=== PATIENT | female | born 1990 | race Two or more races ===

== ENCOUNTER 2019-11-03 18:19 | Inpatient (IN) | payer OTHER ==
[~2019-11-03] VITALS: Ht 167.6 cm; Wt 75.0 kg
[2019-11-03 20:40] LABS: Urine Bacteria NONE SEEN /hpf (None Seen); Urine Blood TRACE /uL (Negative); Urine Specific Gravity 1.038 (1.001-1.035); Urine WBC 1 /hpf (0 - 5)
[2019-11-03] MEDS ORDERED: SODIUM CHLORIDE 0.9% 2,000 ML IV ONE (22:00)
[2019-11-03] MEDS ORDERED: KETOROLAC TROMETH 30 MG/ML 1ML VIAL IV ONE (22:15)
[2019-11-03 23:34] LABS: Basophils # (auto) 0.1 10 ^3/uL (0-0.2); Basophils % (auto) 0.5 % (0.0-2.0); Eosinophils # (auto) 0 10 ^3/uL (0-0.8); Eosinophils % (auto) 0.1 % (0.0-7.0); Lymphocytes % (auto) 5.5 % (10.0-50.0); Monocytes % (auto) 5.5 % (0.0-12.0); Neutrophils # (auto) 15.6 10 ^3/uL (1.6-8.6); Neutrophils % (auto) 88.4 % (37.0-80.0); Nucleated Red Blood Cells % 0.1 %; Platelet Count (auto) 299 10^3/uL (140-450); Red Cell Distribution Width 12.9 % (11.8-14.3)
[2019-11-03 23:50] LABS: Magnesium 3.4 mg/dL (1.6-2.6); Potassium 4.8 mmol/L (3.5-5.1)
[2019-11-04 00:13] LABS: White Blood Cell 17.7 10^3/uL (4.4-10.8)
[2019-11-04 00:14] LABS: Hematocrit 39.4 % (36.0-46.0); Hemoglobin 12.8 g/dL (12.2-16.2); Mean Corpuscular Hemoglobin 29.5 pg (28.0-32.0); Mean Corpuscular Hgb Conc. 32.6 g/dL (32.0-36.0); Mean Corpuscular Volume 90.3 fL (80.0-100.0); Red Blood Cells 4.36 10^6/uL (4.0-5.20)
[2019-11-04 01:25] LABS: BUN/Creatinine Ratio 12.2; Calcium 7.6 mg/dL (8.5-10.1)
[2019-11-04 01:30] LABS: Total Protein 6.4 g/dL (6.4-8.2)
[2019-11-04 01:48] LABS: Albumin 3.6 g/dL (3.4-5.0)
[2019-11-04 01:51] LABS: Bilirubin, Total 0.8 mg/dL (0.2-1.0)
[2019-11-04] MEDS ORDERED: MORPHINE SULFATE 4 MG/ML SYR/VIAL IV PRN (03:00)
[2019-11-04] MEDS ORDERED: TEMAZEPAM 15 MG CAP PO PRN (03:00)
[2019-11-04] MEDS ORDERED: ACETAMINOPHEN 325 MG TAB PO PRN (03:00)
[2019-11-04] MEDS ORDERED: MORPHINE SULF INJ 2 MG/ML SYRINGE 1ML IV PRN ×2 (03:00→16:45)
[2019-11-04] MEDS ORDERED: ONDANSETRON HCL 4 MG/2 ML VIAL IV PRN (03:00)
[2019-11-04] MEDS ORDERED: DEXTROSE (50%) 50ML SYRG IV PRN (03:00)
[2019-11-04] MEDS ORDERED: cefTRIAXone 1GM/50ML D5W 50 ML IV ONE (03:00)
[2019-11-04] MEDS ORDERED: HYDROcodone-ACET 5/325MG TAB PO PRN (03:00)
[2019-11-04] MEDS ORDERED: NITROGLYCERIN 0.4 MG SL TAB SL PRN (03:00)
[2019-11-04] MEDS: SODIUM CHLORIDE 0.9% 1,000 ML IV SCH ×2 (03:27→14:20)
--- NOTE | 2019-11-04 03:40 | NUR ---
arrival note pt arrived to [address] via wheelchair. pt transferred self to hospital bed. pt is A&O4. respirations even and nonlabored on room air. POC discussed with patient. 18g at left AC.
[2019-11-04] MEDS ORDERED: ATOR20TA PO (04:45)
[2019-11-04] MEDS ORDERED: INSLANTI SC (04:45)
[2019-11-04] MEDS ORDERED: METF-370 PO (04:45)
[2019-11-04] MEDS ORDERED: LISI-275 PO (04:45)
[2019-11-04 04:46] VITALS: BP 126/81
[2019-11-04 05:00] VITALS: BP 126/81
[2019-11-04] MEDS: ACCU-CHEK COMFORT CURVE STRIP VI SCH ×3 (05:14→18:22)
[2019-11-04] MEDS: InsuLIN REG 1unit/0.01ml Soln (100units/ml) SC SCH ×3 (05:17→18:42)
[2019-11-04 06:03] LABS: Potassium 5.4 mmol/L (3.5-5.1)
[2019-11-04 06:10] LABS: Calcium 7.1 mg/dL (8.5-10.1)
--- NOTE | 2019-11-04 07:08 | NUR ---
closing note pt resting comfortably in semi fowlers position with eyes closed. no s/s of pain or discomfort at this time. respirations even and nonlabored on room air. bed in low locked position, call light within reach.
--- NOTE | 2019-11-04 07:45 | NUR ---
Morning note Patient resting in bed with even and unlabored respirations, no distress noted. Instructed patient on POC, fall precautions and to call for assistance as needed. Patient verbalized understanding. Fall precautions in place with call light within reach.
[2019-11-04 09:00] VITALS: BP 122/70
[2019-11-04] MEDS ORDERED: FAMOTIDINE 20 MG TAB PO SCH (10:00)
[2019-11-04] MEDS ORDERED: SODIUM CHLORIDE 0.9% 1,000 ML IV ONE (12:00)
[2019-11-04 13:00] VITALS: BP 111/68
[2019-11-04 13:54] LABS: Cholesterol 289 mg/dL (< 200); Triglycerides > 1000 mg/dL (< 150)
[2019-11-04 13:55] LABS: HDL Cholesterol 27 mg/dL (40-59)
--- NOTE | 2019-11-04 14:21 | NUR ---
POC discussed with Dr. Patria Moreno. Patient okay for discharge after dinner if soft diet is tolerated per MD.
[2019-11-04] MEDS ORDERED: INSREG3 SC (16:35)
[2019-11-04 17:00] VITALS: BP 109/67
--- NOTE | 2019-11-04 17:47 | NUR ---
Patient's sister, Suze, called for an update Password obtained. Update provided.
[2019-11-04 17:53] LABS: Anion Gap 14.8 (5-15); Blood Urea Nitrogen 4 mg/dL (7-18); Carbon Dioxide 13.2 mmol/L (21-32); Chloride 111 mmol/L (98-107); Glucose 209 mg/dL (74-106); Sodium 139 mmol/L (136-145)
[2019-11-04 17:54] LABS: Alanine Aminotransferase 110 U/L (13-56); Alkaline Phosphatase 83 U/L (45-117); BUN/Creatinine Ratio 12.5; Bilirubin, Total 0.7 mg/dL (0.2-1.0); Calcium 7.1 mg/dL (8.5-10.1); GFR African American 310 mL/min; GFR Non-African American 256 mL/min
[2019-11-04 17:55] LABS: Albumin 3.1 g/dL (3.4-5.0); Lipase 654 U/L (73-393); Total Protein 6.2 g/dL (6.4-8.2)
[2019-11-04 18:05] LABS: Potassium 4.8 mmol/L (3.5-5.1)
[2019-11-04 18:06] LABS: Aspartate Aminotransferase 89 U/L (15-37); Bilirubin, Direct < 0.1 mg/dL (0-0.2)
[2019-11-04] MEDS ORDERED: GEMF600T7 PO (18:26)
--- NOTE | 2019-11-04 18:30 | NUR ---
Spoke with Dr. Patria Moreno Patient laxmi for discharge. Addendum: 11/04/19 at 1830 by Kasey Powell RN MD aware of recent lab values.
--- NOTE | 2019-11-04 18:31 | NUR ---
RE: Home health/discharge Patient to be discharged. Home health to be arranged with [facility].
--- NOTE | 2019-11-04 19:15 | NUR ---
Opening Shift Note Assumed care of patient, awake and alert. No S/S of distress/SOB or pain. Instructed on POC and to call for assist PRN, will continue to monitor for changes Q1hr and PRN.
--- NOTE | 2019-11-04 19:17 | NUR ---
Closing note/care endorsed Patient resting in bed with even and unlabored respirations, no distress noted. Fall precautions in place with call light within reach.
--- NOTE | 2019-11-04 19:40 | NUR ---
DISCHARGE Discharge instructions provided. All questions answered. IV d/c'd, Tele box removed and patient ID band removed. Patient contacted sister via phone for ride home.
--- NOTE | 2019-11-04 19:55 | NUR ---
TELE BOX Tele box #[id number] returned to monitor techs via bullet system.
--- NOTE | 2019-11-04 19:58 | NUR ---
DISCHARGE Patient's sister arrived to transport home. Patient ambulated off unit independently. All personal items taken with patient. No distress noted.
[2019-11-05] MEDS ORDERED: cefTRIAXone 1GM/50ML D5W 50 ML IV SCH (09:00)
--- NOTE | 2019-11-05 10:30 | NUR ---
SS consult for HH evaluation. Contacted Vinnie Barroso case operator, regarding home health order and was advised to send referral to contracted vendor, [facility]. Contacted [facility] and faxed clinical information. Received confirmation and pt accepted onto service. No other social service needs or concerns.
== END 2019-11-04 19:58 | disposition home health service (06) | DRG 440 ==
LOC: ER 18:21 → TELE-WESTW 18:22
PROVIDERS: ADMIT Nurse Practitioner; ATTEND Internal Medicine
DX: K85.90 Acute pancreatitis without necrosis or infection, unspecified (principal); D72.829 Elevated white blood cell count, unspecified; E78.5 Hyperlipidemia, unspecified; R81 Glycosuria; E11.9 Type 2 diabetes mellitus without complications; I10 Essential (primary) hypertension; Z90.49 Acquired absence of other specified parts of digestive tract; Z87.442 Personal history of urinary calculi
CPT/HCPCS: 36415; 72100; 74176; 80048; 80053; 80061; 80076; 81001; 81025; 82150; 82962; 83036; 83605; 83690; 83735; 85025; 87040; 96361; 96374; 96375; G0378; J0696; J1815; J1885

== ENCOUNTER 2020-03-18 20:17 | Emergency (ER) | payer OTHER ==
[~2020-03-18] VITALS: Ht 162.6 cm; Wt 69.4 kg
[~2020-03-18 20:17] MED LIST: ATOR20TA PO; GEMF600T7 PO; INSLANTI SC; INSREG3 SC; LISI-275 PO; METF-370 PO
[2020-03-18 21:24] LABS: Urine Bacteria FEW /hpf (None Seen); Urine Blood TRACE /uL (Negative); Urine Specific Gravity 1.024 (1.001-1.035); Urine WBC 11 /hpf (0 - 5)
[2020-03-18 22:07] LABS: Eosinophils # (auto) 0.1 10 ^3/uL (0-0.8); Mean Corpuscular Hemoglobin 33.2 pg (28.0-32.0); Mean Corpuscular Hgb Conc. 37.8 g/dL (32.0-36.0); Monocytes # (auto) 0.8 10 ^3/uL (0-1.3)
[2020-03-18 22:09] LABS: Basophils # (auto) 0 10 ^3/uL (0-0.2); Basophils % (auto) 0.3 % (0.0-2.0); Eosinophils % (auto) 0.5 % (0.0-7.0); Hematocrit 39.7 % (36.0-46.0); Lymphocytes # (auto) 2.2 10 ^3/uL (0.4-5.4); Lymphocytes % (auto) 13.8 % (10.0-50.0); Monocytes % (auto) 5.1 % (0.0-12.0); Neutrophils # (auto) 12.9 10 ^3/uL (1.6-8.6); Neutrophils % (auto) 80.3 % (37.0-80.0); Nucleated Red Blood Cells % 0.3 %; Platelet Count (auto) 345 10^3/uL (140-450); Red Blood Cells 4.52 10^6/uL (4.0-5.20); White Blood Cell 16.1 10^3/uL (4.4-10.8)
[2020-03-18 23:22] LABS: Potassium 5.3 mmol/L (3.5-5.1)
[2020-03-18 23:24] LABS: Bilirubin, Total 0.3 mg/dL (0.2-1.0); Calcium 7.9 mg/dL (8.5-10.1); Total Protein 7.1 g/dL (6.4-8.2)
[2020-03-19 01:02] LABS: Amylase 68 U/L (25-115); Lipase 498 U/L (73-393)
[2020-03-19] MEDS ORDERED: ONDANSETRON HCL 4 MG/2 ML VIAL IV ONE (01:15)
[2020-03-19] MEDS ORDERED: MORPHINE SULFATE 4 MG/ML SYR/VIAL IV ONE (01:15)
[2020-03-19] MEDS ORDERED: D5W/SOD CHL 0.45% 1,000 ML IV ONE (01:15)
[2020-03-19] MEDS ORDERED: MORPHINE SULF INJ 2 MG/ML SYRINGE 1ML IV ONE (03:45)
[2020-03-19 04:00] VITALS: BP 105/67
== END 2020-03-19 04:45 | disposition home or self-care (01) ==
LOC: ER 20:18
DX: K85.90 Acute pancreatitis without necrosis or infection, unspecified (principal); I10 Essential (primary) hypertension; E11.9 Type 2 diabetes mellitus without complications; E78.5 Hyperlipidemia, unspecified; Z87.442 Personal history of urinary calculi; K76.0 Fatty (change of) liver, not elsewhere classified; Z90.49 Acquired absence of other specified parts of digestive tract
CPT/HCPCS: 36415; 74176; 80053; 80320; 81001; 82150; 82962; 83605; 83690; 85025; 96361; 96374; 96375; 99285; J2270; J2405

== ENCOUNTER 2020-04-03 11:45 | Inpatient (IN) | payer OTHER ==
[~2020-04-03] VITALS: Ht 162.6 cm; Wt 72.5 kg
[2020-04-03] MEDS ORDERED: SODIUM CHLORIDE 0.9% 1,000 ML IVB ONE (12:15)
[2020-04-03 12:39] LABS: Urine Bacteria FEW /hpf (None Seen); Urine Blood Negative /uL (Negative); Urine Hyaline Cast FEW /lpf (0 - 2); Urine Mucus FEW (None Seen); Urine Specific Gravity 1.046 (1.001-1.035); Urine WBC 4 /hpf (0 - 5)
[2020-04-03 13:13] LABS: Basophils # (auto) 0 10 ^3/uL (0-0.2); Basophils % (auto) 0.1 % (0.0-2.0); Eosinophils # (auto) 0 10 ^3/uL (0-0.8); Eosinophils % (auto) 0.1 % (0.0-7.0); Hematocrit 40.7 % (36.0-46.0); Hemoglobin 14.8 g/dL (12.2-16.2); Lymphocytes # (auto) 0.9 10 ^3/uL (0.4-5.4); Lymphocytes % (auto) 5.7 % (10.0-50.0); Mean Corpuscular Hemoglobin 31.8 pg (28.0-32.0); Mean Corpuscular Hgb Conc. 36.3 g/dL (32.0-36.0); Mean Corpuscular Volume 87.7 fL (80.0-100.0); Monocytes # (auto) 0.4 10 ^3/uL (0-1.3); Monocytes % (auto) 2.7 % (0.0-12.0); Neutrophils % (auto) 91.4 % (37.0-80.0); Platelet Count (auto) 353 10^3/uL (140-450); Red Blood Cells 4.64 10^6/uL (4.0-5.20); Red Cell Distribution Width 12.3 % (11.8-14.3); White Blood Cell 15.3 10^3/uL (4.4-10.8)
[2020-04-03 13:30] LABS: Albumin 3.7 g/dL (3.4-5.0); Calcium 7.6 mg/dL (8.5-10.1); Potassium 3.9 mmol/L (3.5-5.1)
[2020-04-03 13:36] LABS: Bilirubin, Total 0.8 mg/dL (0.2-1.0)
[2020-04-03 14:02] LABS: BUN/Creatinine Ratio 15.3; Total Protein 8.1 g/dL (6.4-8.2)
[2020-04-03] MEDS ORDERED: ACETAMINOPHEN 500 MG TAB PO PRN (14:15)
[2020-04-03] MEDS ORDERED: ONDANSETRON HCL 4 MG/2 ML VIAL IV PRN (14:15)
[2020-04-03] MEDS ORDERED: D5W/LACTATED RINGERS 1,000 ML IV ONE (14:15)
[2020-04-03] MEDS ORDERED: MORPHINE SULF INJ 2 MG/ML SYRINGE 1ML IV PRN ×2 (14:15)
[2020-04-03] MEDS ORDERED: DEXTROSE (50%) 50ML SYRG IV PRN (14:15)
[2020-04-03] MEDS ORDERED: NITROGLYCERIN 0.4 MG SL TAB SL PRN (14:15)
[2020-04-03 14:49] LABS: HDL Cholesterol 35 mg/dL (40-59); Triglycerides 985 mg/dL (< 150)
[2020-04-03] MEDS: MORPHINE SULFATE 4 MG/ML SYR/VIAL IV PRN ×3 (15:01→22:18)
[2020-04-03 15:12] LABS: Cholesterol 385 mg/dL (< 200)
[2020-04-03] MEDS ORDERED: LACTATED RINGER'S 1,000 ML IV SCH (15:15)
[2020-04-03] MEDS: GEMFIBROZIL 600 MG TAB PO SCH (17:20)
[2020-04-03] MEDS: InsuLIN REG 1unit/0.01ml Soln (100units/ml) SC SCH (18:00)
[2020-04-03] MEDS: ACCU-CHEK COMFORT CURVE STRIP VI SCH (18:00)
--- NOTE | 2020-04-03 20:25 | NUR ---
MS admit from ER CLEMENT,SANDRA admitted to tele/MS after SBAR received. Patient alert and oriented x4 to LYNSEY KAPLAN RN primary RN,298A, and unit policies regarding patient care and visiting hours.Bed in low locked position, call light within reach. Patient weighed by bedscale and encouraged to call if they need something. All questions and concerns addressed, patient verbalized understanding. Note:
[2020-04-03] MEDS ORDERED: HYDR-4833 PO (21:37)
[2020-04-03] MEDS ORDERED: CYAN100T7 PO (21:37)
[2020-04-03] MEDS ORDERED: CHOL1000 PO (21:37)
[2020-04-03] MEDS ORDERED: LOSA-69 PO (21:37)
[2020-04-03] MEDS ORDERED: LATA0.0019 EACHEYE (21:37)
[2020-04-03] MEDS: FAMOTIDINE (10MG/ML) 2ML VL IV SCH (21:52)
[2020-04-03] MEDS: ATORVASTATIN 20 MG TAB PO SCH (21:52)
[2020-04-03 22:00] VITALS: BP 113/71
--- NOTE | 2020-04-03 22:18 | NUR ---
Pain medication given /10 for pain score on left abdomen radiating to the back. tolerated. will continue to monitor and educate patient.
[2020-04-04] MEDS: ACCU-CHEK COMFORT CURVE STRIP VI SCH ×4 (00:52→17:33)
[2020-04-04] MEDS: InsuLIN REG 1unit/0.01ml Soln (100units/ml) SC SCH ×4 (00:53→17:33)
--- NOTE | 2020-04-04 04:06 | NUR ---
Patient asleep right now. no signs of distress and sob. will continue to educate and monitor.
[2020-04-04] MEDS: MORPHINE SULFATE 4 MG/ML SYR/VIAL IV PRN (04:58)
[2020-04-04 05:00] VITALS: BP 101/61
--- NOTE | 2020-04-04 05:00 | NUR ---
Pain medication given.tolerated.
[2020-04-04] MEDS: GEMFIBROZIL 600 MG TAB PO SCH ×2 (06:53→17:32)
--- NOTE | 2020-04-04 07:01 | NUR ---
Closing shift report Patient alert and oriented. No SOB and no acute distress seen. Bed in low locked position, call light within reach, siderails up x2, non skid socks on.
[2020-04-04 07:11] LABS: Basophils # (auto) 0 10 ^3/uL (0-0.2); Basophils % (auto) 0.2 % (0.0-2.0); Eosinophils # (auto) 0.1 10 ^3/uL (0-0.8); Eosinophils % (auto) 0.8 % (0.0-7.0); Hematocrit 38.8 % (36.0-46.0); Hemoglobin 13.1 g/dL (12.2-16.2); Lymphocytes # (auto) 1.2 10 ^3/uL (0.4-5.4); Lymphocytes % (auto) 10.2 % (10.0-50.0); Mean Corpuscular Hemoglobin 29.8 pg (28.0-32.0); Mean Corpuscular Hgb Conc. 33.7 g/dL (32.0-36.0); Mean Corpuscular Volume 88.4 fL (80.0-100.0); Monocytes # (auto) 0.7 10 ^3/uL (0-1.3); Monocytes % (auto) 5.7 % (0.0-12.0); Neutrophils # (auto) 9.7 10 ^3/uL (1.6-8.6); Neutrophils % (auto) 83.1 % (37.0-80.0); Nucleated Red Blood Cells % 0.1 %; Platelet Count (auto) 319 10^3/uL (140-450); Red Blood Cells 4.39 10^6/uL (4.0-5.20); Red Cell Distribution Width 12.8 % (11.8-14.3); White Blood Cell 11.7 10^3/uL (4.4-10.8)
--- NOTE | 2020-04-04 07:30 | NUR ---
RECEIVED REPORT FROM NIGHT NURSE. PATIENT RESTING IN BED, NO DISTRESS NOTED. WILL CONTINUE TO MONITOR.
[2020-04-04 07:35] LABS: Potassium 3.1 mmol/L (3.5-5.1)
[2020-04-04 07:42] LABS: Albumin 3.5 g/dL (3.4-5.0); BUN/Creatinine Ratio 28.9; Bilirubin, Total 0.8 mg/dL (0.2-1.0); Calcium 8.4 mg/dL (8.5-10.1); Total Protein 7.1 g/dL (6.4-8.2)
[2020-04-04 09:00] VITALS: BP 101/62
[2020-04-04] MEDS: FAMOTIDINE (10MG/ML) 2ML VL IV SCH ×2 (09:48→21:58)
--- NOTE | 2020-04-04 11:19 | NUR ---
DR. MEZA AT BEDSIDE.
[2020-04-04 13:00] VITALS: BP 111/68
[2020-04-04 17:00] VITALS: BP 105/66
[2020-04-04] MEDS: ATORVASTATIN 20 MG TAB PO SCH (21:58)
[2020-04-04 22:00] VITALS: BP 106/72
[2020-04-05] MEDS: ACCU-CHEK COMFORT CURVE STRIP VI SCH ×4 (00:14→18:00)
[2020-04-05] MEDS: InsuLIN REG 1unit/0.01ml Soln (100units/ml) SC SCH ×4 (00:22→18:00)
[2020-04-05 05:20] VITALS: BP 105/65
[2020-04-05] MEDS: GEMFIBROZIL 600 MG TAB PO SCH ×2 (06:12→17:00)
[2020-04-05 09:00] VITALS: BP 95/61
[2020-04-05] MEDS: FAMOTIDINE (10MG/ML) 2ML VL IV SCH (10:32)
[2020-04-05 13:00] VITALS: BP 106/69
[2020-04-05] MEDS ORDERED: GEMF600T7 PO (16:06)
[2020-04-05] MEDS ORDERED: INSLANTI SC ×2 (16:06→17:17)
[2020-04-05 17:00] VITALS: BP 117/69
--- NOTE | 2020-04-05 18:26 | NUR ---
Discharge instructions given as ordered. Encourage to follow up with PMD as instructed. All questions and concerns addressed. Patient verbalized understanding. Medication reconciliation form completed and copy given to patient. IV removed with catheter intact, pressure dressing applied. Patient AMBULATED to vehicle with all personal belongings, accompanied by staff. No distress noted at time of departure.
== END 2020-04-05 18:22 | disposition home or self-care (01) | DRG 440 ==
LOC: ER 11:45 → OVERFLOW 11:46 → WEST WING 20:25
PROVIDERS: ADMIT Hospitalist; ATTEND Hospitalist
DX: K85.90 Acute pancreatitis without necrosis or infection, unspecified (principal); E78.1 Pure hyperglyceridemia; K86.1 Other chronic pancreatitis; E78.5 Hyperlipidemia, unspecified; E11.65 Type 2 diabetes mellitus with hyperglycemia; I10 Essential (primary) hypertension; Z87.442 Personal history of urinary calculi; Z90.49 Acquired absence of other specified parts of digestive tract; Z82.49 Family history of ischemic heart disease and other diseases of the circulatory system; Z83.3 Family history of diabetes mellitus; Z79.4 Long term (current) use of insulin; Z79.899 Other long term (current) drug therapy
CPT/HCPCS: 36415; 74176; 80053; 80061; 81001; 81025; 82962; 83036; 83690; 85025; G0378; J1815; J3490

== ENCOUNTER 2021-04-27 12:37 | Emergency (ER) | payer OTHER ==
[~2021-04-27] VITALS: Ht 162.6 cm; Wt 63.5 kg
[~2021-04-27 12:37] MED LIST changes: +ATO40T PO; -ATOR20TA PO; +CHOL-17 PO; +CYAN100T7 PO; +GEMF-19 PO; -GEMF600T7 PO; +HYDR-4833 PO; +LATA0.0019 EACHEYE; -LISI-275 PO; +LOSA-69 PO
[2021-04-27] MEDS ORDERED: ONDANSETRON ODT 4 MG TAB PO ONE (13:15)
[2021-04-27 14:28] LABS: Basophils # (auto) 0 10 ^3/uL (0-0.2); Eosinophils # (auto) 0.1 10 ^3/uL (0-0.8); Hemoglobin 13.6 g/dL (12.2-16.2); Mean Corpuscular Hemoglobin 30.8 pg (28.0-32.0)
[2021-04-27 14:30] LABS: Basophils % (auto) 0.2 % (0.0-2.0); Eosinophils % (auto) 0.9 % (0.0-7.0); Hematocrit 39.7 % (36.0-46.0); Lymphocytes # (auto) 1.1 10 ^3/uL (0.4-5.4); Lymphocytes % (auto) 15.7 % (10.0-50.0); Mean Corpuscular Hgb Conc. 34.2 g/dL (32.0-36.0); Monocytes % (auto) 14.2 % (0.0-12.0); Neutrophils # (auto) 4.8 10 ^3/uL (1.6-8.6); Red Blood Cells 4.41 10^6/uL (4.0-5.20); Red Cell Distribution Width 13.3 % (11.8-14.3); White Blood Cell 6.9 10^3/uL (4.4-10.8)
[2021-04-27 14:32] LABS: Potassium 3.3 mmol/L (3.5-5.1)
[2021-04-27 14:39] LABS: Albumin 3.7 g/dL (3.4-5.0); BUN/Creatinine Ratio 8.3; Bilirubin, Total 0.5 mg/dL (0.2-1.0); Calcium 10.1 mg/dL (8.5-10.1); Total Protein 7.7 g/dL (6.4-8.2)
[2021-04-27 15:52] LABS: Urine Bacteria MANY /hpf (None Seen); Urine Blood 3+ /uL (Negative); Urine Budding Yeast MODERATE /hpf (None Seen); Urine Specific Gravity 1.018 (1.001-1.035); Urine Sperm PRESENT /hpf (None Seen); Urine WBC 134 /hpf (0 - 5); Urine WBC Clumps PRESENT /hpf (None Seen)
[2021-04-27 17:33] VITALS: BP 107/68
== END 2021-04-27 17:36 | disposition home or self-care (01) ==
LOC: ER 12:37
DX: N39.0 Urinary tract infection, site not specified (principal); R11.2 Nausea with vomiting, unspecified; R19.7 Diarrhea, unspecified; I10 Essential (primary) hypertension; E11.9 Type 2 diabetes mellitus without complications; E78.5 Hyperlipidemia, unspecified; Z79.4 Long term (current) use of insulin; Z79.899 Other long term (current) drug therapy
CPT/HCPCS: 36415; 80053; 81001; 85025; 99283; Q0162

== ENCOUNTER 2021-12-03 18:37 | Emergency (ER) | payer OTHER ==
[~2021-12-03] VITALS: Ht 162.6 cm; Wt 70.3 kg
[2021-12-03] MEDS ORDERED: MORPHINE SULFATE 4 MG/ML SYR/VIAL IV ONE (20:00)
[2021-12-03] MEDS ORDERED: SODIUM CHLORIDE 0.9% 500 ML IVB ONE (20:00)
[2021-12-03] MEDS ORDERED: ONDANSETRON HCL 4 MG/2 ML VIAL IV ONE (20:00)
[2021-12-03 20:27] LABS: Basophils # (auto) 0.1 10 ^3/uL (0-0.2); Basophils % (auto) 0.5 % (0.0-2.0); Eosinophils # (auto) 0.1 10 ^3/uL (0-0.8); Eosinophils % (auto) 0.7 % (0.0-7.0); Hematocrit 43.6 % (36.0-46.0); Hemoglobin 15.1 g/dL (12.2-16.2); Lymphocytes # (auto) 2.2 10 ^3/uL (0.4-5.4); Lymphocytes % (auto) 20.7 % (10.0-50.0); Mean Corpuscular Hemoglobin 30.8 pg (28.0-32.0); Mean Corpuscular Hgb Conc. 34.7 g/dL (32.0-36.0); Mean Corpuscular Volume 88.7 fL (80.0-100.0); Monocytes # (auto) 0.7 10 ^3/uL (0-1.3); Monocytes % (auto) 6.9 % (0.0-12.0); Neutrophils # (auto) 7.4 10 ^3/uL (1.6-8.6); Neutrophils % (auto) 71.2 % (37.0-80.0); Nucleated Red Blood Cells % 0.5 %; Red Blood Cells 4.91 10^6/uL (4.0-5.20); Red Cell Distribution Width 12.7 % (11.8-14.3); White Blood Cell 10.5 10^3/uL (4.4-10.8)
[2021-12-03 20:33] LABS: Urine Bacteria MANY /hpf (None Seen); Urine Blood 1+ /uL (Negative); Urine Budding Yeast MODERATE /hpf (None Seen); Urine Hyaline Cast FEW /lpf (0 - 2); Urine Mucus FEW (None Seen); Urine Specific Gravity 1.041 (1.001-1.035); Urine WBC 5 /hpf (0 - 5)
[2021-12-03 20:41] LABS: INR 0.93 (0.9-1.15); Partial Thromboplastin Time 25.6 sec (23.6-33.0)
[2021-12-03] MEDS ORDERED: NITR-87 PO (21:14)
[2021-12-03] MEDS ORDERED: TRAM-297 PO (21:14)
[2021-12-03] MEDS ORDERED: ONDA-144 PO (21:14)
[2021-12-03] MEDS ORDERED: cefTRIAXone 1GM/50ML D5W 50 ML IV ONE (21:15)
[2021-12-03 21:33] LABS: Anion Gap 15 (5-15); Carbon Dioxide 20 mmol/L (21-32); Chloride 103 mmol/L (98-107); Potassium 3.7 mmol/L (3.5-5.1); Sodium 138 mmol/L (136-145)
[2021-12-03 21:34] LABS: Alanine Aminotransferase 86 U/L (13-56); Albumin 4.2 g/dL (3.4-5.0); Alkaline Phosphatase 78 U/L (45-117); Amylase 67 U/L (25-115); Aspartate Aminotransferase 81 U/L (15-37); BUN/Creatinine Ratio 18.6; Bilirubin, Total 0.5 mg/dL (0.2-1.0); Blood Urea Nitrogen 11 mg/dL (7-18); Calcium 10.3 mg/dL (8.5-10.1); GFR African American 151 mL/min; GFR Non-African American 125 mL/min; Glucose 144 mg/dL (74-106); Lipase 172 U/L (73-393); Total Protein 8.5 g/dL (6.4-8.2)
[2021-12-03 23:45] VITALS: BP 142/95
== END 2021-12-03 23:45 | disposition home or self-care (01) ==
LOC: ER 18:37
DX: N39.0 Urinary tract infection, site not specified (principal); E11.9 Type 2 diabetes mellitus without complications; E78.5 Hyperlipidemia, unspecified; I10 Essential (primary) hypertension; Z87.442 Personal history of urinary calculi; Z90.49 Acquired absence of other specified parts of digestive tract; Z32.02 Encounter for pregnancy test, result negative
CPT/HCPCS: 36415; 74176; 80053; 81001; 81025; 82150; 83690; 85025; 85610; 85730; 96365; 99284; J0696; J2405; J7030

== ENCOUNTER 2021-12-25 02:06 | Emergency (ER) | payer OTHER ==
[~2021-12-25 02:06] MED LIST changes: +NITR-87 PO; +ONDA-144 PO; +TRAM-297 PO
[2021-12-25 07:22] VITALS: BP 110/74
[2021-12-25] MEDS ORDERED: ACET-1158 PO (07:49)
[2021-12-25] MEDS ORDERED: CARB6.5S44 OT (07:49)
[2021-12-25] MEDS ORDERED: AMOX-277 PO (07:49)
== END 2021-12-25 08:14 | disposition home or self-care (01) ==
LOC: ER 02:06
DX: H66.92 Otitis media, unspecified, left ear (principal); H61.22 Impacted cerumen, left ear; E10.10 Type 1 diabetes mellitus with ketoacidosis without coma; E78.5 Hyperlipidemia, unspecified; I10 Essential (primary) hypertension; Z79.4 Long term (current) use of insulin; Z79.2 Long term (current) use of antibiotics; Z79.899 Other long term (current) drug therapy

== ENCOUNTER 2022-02-21 17:07 | Inpatient (IN) | payer OTHER ==
[~2022-02-21] VITALS: Ht 162.6 cm; Wt 69.1 kg
[~2022-02-21 17:07] MED LIST changes: +ACET-1158 PO; +AMOX-277 PO; +CARB6.5S44 OT
[2022-02-21] MEDS ORDERED: KETOROLAC TROMETH 30 MG/ML 1ML VIAL IV ONE (19:00)
[2022-02-21] MEDS ORDERED: SODIUM CHLORIDE 0.9% 500 ML IVB ONE (19:00)
[2022-02-21 19:07] LABS: Urine Bacteria FEW /hpf (None Seen); Urine Blood Negative /uL (Negative); Urine Specific Gravity 1.042 (1.001-1.035); Urine WBC 2 /hpf (0 - 5)
[2022-02-21 19:49] LABS: Eosinophils # (auto) 0 10 ^3/uL (0-0.8); Eosinophils % (auto) 0.2 % (0.0-7.0); Lymphocytes # (auto) 0.8 10 ^3/uL (0.4-5.4); Monocytes # (auto) 1.2 10 ^3/uL (0-1.3); Monocytes % (auto) 6.6 % (0.0-12.0); Red Cell Distribution Width 12.9 % (11.8-14.3)
[2022-02-21 19:50] LABS: Basophils # (auto) 0.1 10 ^3/uL (0-0.2); Basophils % (auto) 0.3 % (0.0-2.0); Hematocrit 42.4 % (36.0-46.0); Hemoglobin 16.5 g/dL (12.2-16.2); Lymphocytes % (auto) 4.4 % (10.0-50.0); Mean Corpuscular Hemoglobin 35.5 pg (28.0-32.0); Neutrophils # (auto) 16.6 10 ^3/uL (1.6-8.6); Neutrophils % (auto) 88.5 % (37.0-80.0); Red Blood Cells 4.66 10^6/uL (4.0-5.20); White Blood Cell 18.8 10^3/uL (4.4-10.8)
[2022-02-21 20:19] LABS: GFR African American 95 mL/min; GFR Non-African American 79 mL/min
[2022-02-21 20:46] LABS: Chloride 97 mmol/L (98-107); Potassium 4.3 mmol/L (3.5-5.1); Sodium 128 mmol/L (136-145)
[2022-02-21 20:47] LABS: Alkaline Phosphatase 93 U/L (45-117); Anion Gap 11 (5-15); BUN/Creatinine Ratio 9.1; Bilirubin, Total 1.5 mg/dL (0.2-1.0); Blood Urea Nitrogen 8 mg/dL (7-18); Calcium 6.5 mg/dL (8.5-10.1); Carbon Dioxide 20 mmol/L (21-32)
[2022-02-21 20:50] LABS: Albumin 3.8 g/dL (3.4-5.0)
[2022-02-21 21:02] LABS: Alanine Aminotransferase 43 U/L (13-56); Aspartate Aminotransferase 45 U/L (15-37); Glucose 462 mg/dL (74-106)
[2022-02-21] MEDS ORDERED: DEXTROSE (50%) 50ML SYRG IV PRN (23:45)
[2022-02-21] MEDS ORDERED: IBUPROFEN 600 MG TAB PO PRN (23:45)
[2022-02-21] MEDS ORDERED: SODIUM CHLORIDE 0.9% 1,000 ML IV SCH (23:45)
[2022-02-22] VITALS (18 sets, daily range): BP systolic 99–115; BP diastolic 59–72
[2022-02-22] MEDS ORDERED: ACCU-CHEK COMFORT CURVE STRIP VI SCH
[2022-02-22] MEDS ORDERED: InsuLIN REG 1unit/0.01ml Soln (100units/ml) SC SCH
[2022-02-22] MEDS ORDERED: NITROGLYCERIN 0.4 MG SL TAB SL PRN
[2022-02-22] MEDS ORDERED: metroNIDAZOLE 500MG/100ML 100 ML IV ONE
[2022-02-22] MEDS ORDERED: MORPHINE SULFATE INJ 2 MG/ml SYRG IV PRN
[2022-02-22] MEDS: ONDANSETRON HCL 4 MG/2 ML VIAL IV PRN ×2 (00:15→06:16)
[2022-02-22] MEDS: MORPHINE SULFATE INJ 2 MG/ml SYRG IV PRN ×5 (00:15→20:20)
[2022-02-22 02:20] LABS: Albumin 3.7 g/dL (3.4-5.0); BUN/Creatinine Ratio 17.1; Calcium 8.2 mg/dL (8.5-10.1); Potassium 4.2 mmol/L (3.5-5.1)
[2022-02-22 02:28] LABS: Bilirubin, Total 0.8 mg/dL (0.2-1.0); Total Protein 7.2 g/dL (6.4-8.2)
[2022-02-22] MEDS ORDERED: INSULIN LANTUS (GLARGINE) 1 /0.01ml (100units/ml) SC ONE (04:15)
[2022-02-22] MEDS ORDERED: InsuLIN R (HUMAN) 100 UNITS in SODIUM CHL 0.9% 99 ML IV SCH (04:15)
[2022-02-22] MEDS ORDERED: DEXTROSE (50%) 50ML SYRG IV PRN (04:15)
[2022-02-22] MEDS ORDERED: InsuLIN REG 1unit/0.01ml Soln (100units/ml) ONE (04:20)
[2022-02-22] MEDS: SODIUM CHLORIDE 0.9% 1,000 ML IV SCH ×5 (04:30→19:50)
[2022-02-22] MEDS: ACCU-CHEK COMFORT CURVE STRIP VI SCH ×9 (04:47→19:46)
[2022-02-22] MEDS: metroNIDAZOLE 500MG/100ML 100 ML IV SCH ×3 (07:33→21:51)
[2022-02-22] MEDS ORDERED: SODIUM CHLORIDE 0.9% 1,000 ML IV SCH (08:15)
[2022-02-22 08:24] LABS: Basophils # (auto) 0.1 10 ^3/uL (0-0.2); Basophils % (auto) 0.4 % (0.0-2.0); Eosinophils # (auto) 0 10 ^3/uL (0-0.8); Eosinophils % (auto) 0.2 % (0.0-7.0); Hematocrit 35.7 % (36.0-46.0); Hemoglobin 12.2 g/dL (12.2-16.2); Lymphocytes # (auto) 0.6 10 ^3/uL (0.4-5.4); Lymphocytes % (auto) 3.6 % (10.0-50.0); Mean Corpuscular Hemoglobin 30.7 pg (28.0-32.0); Mean Corpuscular Hgb Conc. 34.1 g/dL (32.0-36.0); Mean Corpuscular Volume 90.2 fL (80.0-100.0); Monocytes # (auto) 1.1 10 ^3/uL (0-1.3); Monocytes % (auto) 7.2 % (0.0-12.0); Neutrophils % (auto) 88.6 % (37.0-80.0); Red Blood Cells 3.96 10^6/uL (4.0-5.20); Red Cell Distribution Width 12.4 % (11.8-14.3); White Blood Cell 15.8 10^3/uL (4.4-10.8)
[2022-02-22 08:49] LABS: BUN/Creatinine Ratio 16.7; Calcium 7.7 mg/dL (8.5-10.1); Phosphorus 1.6 mg/dL (2.5-4.90); Potassium 3.6 mmol/L (3.5-5.1)
[2022-02-22] MEDS: FAMOTIDINE (10MG/ML) 2ML VL IV SCH ×2 (08:58→21:51)
[2022-02-22 10:20] LABS: BUN/Creatinine Ratio 11.8; Calcium 7.7 mg/dL (8.5-10.1); Potassium 3.9 mmol/L (3.5-5.1)
[2022-02-22 10:21] LABS: Cholesterol 249 mg/dL (< 200); HDL Cholesterol 36 mg/dL (40-59); Triglycerides 1171 mg/dL (< 150)
[2022-02-22] MEDS ORDERED: ATORVASTATIN 20 MG TAB PO ONE (11:30)
[2022-02-22] MEDS: InsuLIN REG 1unit/0.01ml Soln (100units/ml) SC SCH ×2 (15:58→19:46)
[2022-02-22 16:36] LABS: BUN/Creatinine Ratio 20.8; Calcium 8.3 mg/dL (8.5-10.1); Potassium 3.6 mmol/L (3.5-5.1)
[2022-02-22 22:37] LABS: BUN/Creatinine Ratio 16.7; Calcium 7.8 mg/dL (8.5-10.1); Potassium 3.2 mmol/L (3.5-5.1)
[2022-02-23] VITALS (23 sets, daily range): BP systolic 95–110; BP diastolic 59–75
[2022-02-23] MEDS: InsuLIN REG 1unit/0.01ml Soln (100units/ml) SC SCH ×7 (00:26→23:57)
[2022-02-23] MEDS: POTASSIUM CHL 20MEQ/100ML 100 ML IV SCH ×2 (00:27→02:20)
[2022-02-23] MEDS: ACCU-CHEK COMFORT CURVE STRIP VI SCH ×7 (00:56→23:55)
[2022-02-23 03:46] LABS: Basophils # (auto) 0 10 ^3/uL (0-0.2); Basophils % (auto) 0.2 % (0.0-2.0); Eosinophils # (auto) 0.1 10 ^3/uL (0-0.8); Eosinophils % (auto) 0.8 % (0.0-7.0); Hematocrit 33.1 % (36.0-46.0); Hemoglobin 11.2 g/dL (12.2-16.2); Lymphocytes # (auto) 1.3 10 ^3/uL (0.4-5.4); Lymphocytes % (auto) 13.3 % (10.0-50.0); Mean Corpuscular Hemoglobin 30.4 pg (28.0-32.0); Mean Corpuscular Hgb Conc. 33.7 g/dL (32.0-36.0); Mean Corpuscular Volume 90.2 fL (80.0-100.0); Monocytes # (auto) 0.6 10 ^3/uL (0-1.3); Monocytes % (auto) 5.9 % (0.0-12.0); Neutrophils # (auto) 7.9 10 ^3/uL (1.6-8.6); Neutrophils % (auto) 79.8 % (37.0-80.0); Red Blood Cells 3.67 10^6/uL (4.0-5.20); White Blood Cell 9.9 10^3/uL (4.4-10.8)
[2022-02-23 04:01] LABS: Calcium 7.9 mg/dL (8.5-10.1); Potassium 3.6 mmol/L (3.5-5.1)
[2022-02-23] MEDS: SODIUM CHLORIDE 0.9% 1,000 ML IV SCH ×3 (04:08→22:19)
[2022-02-23] MEDS: metroNIDAZOLE 500MG/100ML 100 ML IV SCH ×3 (05:47→22:00)
[2022-02-23] MEDS: MORPHINE SULFATE INJ 2 MG/ml SYRG IV PRN (06:26)
[2022-02-23 07:38] LABS: Cholesterol 195 mg/dL (< 200)
[2022-02-23 07:41] LABS: HDL Cholesterol 39 mg/dL (40-59); Triglycerides 461 mg/dL (< 150)
[2022-02-23 08:50] LABS: Urine Bacteria NONE SEEN /hpf (None Seen); Urine Blood Negative /uL (Negative); Urine Mucus FEW (None Seen); Urine Specific Gravity 1.011 (1.001-1.035); Urine WBC 11 /hpf (0 - 5)
[2022-02-23] MEDS: FAMOTIDINE (10MG/ML) 2ML VL IV SCH ×2 (10:35→22:00)
[2022-02-23] MEDS: INSULIN LANTUS (GLARGINE) 1 /0.01ml (100units/ml) SC SCH (10:47)
[2022-02-23] MEDS: ATORVASTATIN 20 MG TAB PO SCH (22:00)
[2022-02-24] VITALS: BP 102/63
[2022-02-24] MEDS: SODIUM CHLORIDE 0.9% 1,000 ML IV SCH ×4 (02:42→22:15)
[2022-02-24 05:00] VITALS: BP 99/64
[2022-02-24] MEDS: metroNIDAZOLE 500MG/100ML 100 ML IV SCH ×3 (05:06→22:00)
[2022-02-24] MEDS: ACCU-CHEK COMFORT CURVE STRIP VI SCH ×5 (05:06→20:00)
[2022-02-24] MEDS: InsuLIN REG 1unit/0.01ml Soln (100units/ml) SC SCH ×5 (06:32→20:41)
[2022-02-24 08:43] VITALS: BP 95/100
[2022-02-24] MEDS: FAMOTIDINE (10MG/ML) 2ML VL IV SCH ×2 (10:11→22:00)
[2022-02-24] MEDS: INSULIN LANTUS (GLARGINE) 1 /0.01ml (100units/ml) SC SCH (10:25)
[2022-02-24 12:22] VITALS: BP 110/70
[2022-02-24 17:14] VITALS: BP 120/76
[2022-02-24 22:00] VITALS: BP 107/71
[2022-02-24] MEDS: ATORVASTATIN 20 MG TAB PO SCH (22:00)
[2022-02-25] MEDS: InsuLIN REG 1unit/0.01ml Soln (100units/ml) SC SCH ×3 (03:37→07:59)
[2022-02-25] MEDS: ACCU-CHEK COMFORT CURVE STRIP VI SCH ×3 (03:38→06:11)
[2022-02-25] MEDS: SODIUM CHLORIDE 0.9% 1,000 ML IV SCH ×2 (03:38→10:31)
[2022-02-25 05:00] VITALS: BP 105/71
[2022-02-25] MEDS: metroNIDAZOLE 500MG/100ML 100 ML IV SCH ×2 (06:11→13:09)
[2022-02-25 09:00] VITALS: BP 117/71
[2022-02-25] MEDS: FAMOTIDINE (10MG/ML) 2ML VL IV SCH (09:13)
[2022-02-25] MEDS: INSULIN LANTUS (GLARGINE) 1 /0.01ml (100units/ml) SC SCH (09:14)
[2022-02-25] MEDS ORDERED: DEXTROSE (50%) 50ML SYRG IV PRN (11:45)
[2022-02-25 13:00] VITALS: BP 116/77
[2022-02-25] MEDS ORDERED: METR500T PO (15:14)
[2022-02-25] MEDS ORDERED: LEVO500T31 PO (15:14)
[2022-02-25 15:32] VITALS: BP 116/77
[2022-02-25] MEDS ORDERED: ACCU-CHEK COMFORT CURVE STRIP VI SCH (17:00)
[2022-02-25] MEDS ORDERED: InsuLIN REG 1unit/0.01ml Soln (100units/ml) SC SCH (17:00)
== END 2022-02-25 15:30 | disposition home or self-care (01) | DRG 438 ==
LOC: ER 17:07 → OVERFLOW 02-22 00:03 → ICU WEST 02-22 05:53 → TELE-EAST 02-23 23:15
PROVIDERS: ADMIT Nurse Practitioner Family; ATTEND Internal Medicine
DX: K85.90 Acute pancreatitis without necrosis or infection, unspecified (principal); E10.10 Type 1 diabetes mellitus with ketoacidosis without coma; E87.1 Hypo-osmolality and hyponatremia; N13.30 Unspecified hydronephrosis; E78.5 Hyperlipidemia, unspecified; N28.89 Other specified disorders of kidney and ureter; E78.1 Pure hyperglyceridemia; Z20.822 Contact with and (suspected) exposure to COVID-19; E87.6 Hypokalemia; I10 Essential (primary) hypertension; K76.0 Fatty (change of) liver, not elsewhere classified; Z79.4 Long term (current) use of insulin; Z83.3 Family history of diabetes mellitus; Z87.442 Personal history of urinary calculi; Z90.49 Acquired absence of other specified parts of digestive tract
CPT/HCPCS: 36415; 36600; 76705; 80048; 80053; 80061; 81001; 82010; 82805; 82962; 83690; 83735; 83930; 84100; 85025; 87040; 87081; 96361; 96365; 96367; 96372; 96375; G0378; J1815; J1885; J2405; J3480; J3490

== ENCOUNTER 2023-10-18 14:54 | Inpatient (IN) | payer OTHER ==
[~2023-10-18] VITALS: Ht 162.6 cm; Wt 65.7 kg
[~2023-10-18 14:54] MED LIST changes: -ACET-1158 PO; +ACET500T58 PO; -AMOX-277 PO; +AMOX875T4 PO; -ATO40T PO; +ATOR-507 PO; -GEMF-19 PO; +GEMF-66 PO; -LATA0.0019 EACHEYE; +LATA0.008 EACHEYE; +LEVO500T31 PO; +LOSA-534 PO; -LOSA-69 PO; +METR500T PO
[2023-10-18 15:37] LABS: Basophils # (auto) 0.1 10 ^3/uL (0-0.2); Basophils % (auto) 0.3 % (0.0-2.0); Eosinophils # (auto) 0.1 10 ^3/uL (0-0.8); Eosinophils % (auto) 0.3 % (0.0-7.0); Hematocrit 43.5 % (36.0-46.0); Hemoglobin 15.4 g/dL (12.2-16.2); Lymphocytes # (auto) 1.4 10 ^3/uL (0.4-5.4); Lymphocytes % (auto) 6.4 % (10.0-50.0); Mean Corpuscular Hemoglobin 31.7 pg (28.0-32.0); Mean Corpuscular Hgb Conc. 35.5 g/dL (32.0-36.0); Mean Corpuscular Volume 89.2 fL (80.0-100.0); Monocytes # (auto) 1.1 10 ^3/uL (0-1.3); Monocytes % (auto) 4.9 % (0.0-12.0); Neutrophils # (auto) 19.6 10 ^3/uL (1.6-8.6); Neutrophils % (auto) 88.1 % (37.0-80.0); Nucleated Red Blood Cells % 0.1 %; Red Blood Cells 4.87 10^6/uL (4.0-5.20); Red Cell Distribution Width 12.8 % (11.8-14.3); White Blood Cell 22.2 10^3/uL (4.4-10.8)
[2023-10-18 15:45] LABS: INR 0.99 (0.9-1.15); Partial Thromboplastin Time 25.9 SEC (24.5-34.5); Prothrombin Time 10.5 sec (9.3-11.8)
[2023-10-18 15:46] LABS: Albumin 5.1 g/dL (3.2-4.8); Alkaline Phosphatase 85 U/L (46-116); Anion Gap 13 (5-15); Calcium 10.1 mg/dL (8.7-10.4); Carbon Dioxide 18 mmol/L (20-30); Chloride 97 mmol/L (98-107); Glucose 350 mg/dL (74-106); Sodium 128 mmol/L (136-145)
[2023-10-18 15:47] LABS: Bilirubin, Total 0.7 mg/dL (0.2-1.0); Total Protein 7.8 g/dL (5.7-8.2)
[2023-10-18 15:47] LABS: Urine Bacteria FEW /hpf (None Seen); Urine Blood TRACE /uL (Negative); Urine Clarity Clear (Clear); Urine Color Light-Yellow (Yellow); Urine Mucus FEW (None Seen); Urine Protein, UAD 3+ (Negative); Urine Specific Gravity 1.043 (1.001-1.035); Urine Urobilinogen Normal (Negative); Urine WBC 3 /hpf (0 - 5)
[2023-10-18 15:53] LABS: Amphetamine Screen, Urine Neg (NEGATIVE); Barbiturate Scree,Urine Neg (NEGATIVE); Benzodiazephine Screen, Urine Neg (NEGATIVE); Cocaine Screen, Urine Neg (NEGATIVE); Opiate Scree,Urine Neg (NEGATIVE); Phencyclidine Screen, Urine Neg (NEGATIVE)
[2023-10-18 15:54] LABS: Cannabinoid Screen, Urine Neg (NEGATIVE)
[2023-10-18 16:04] LABS: Alanine Aminotransferase 45 U/L (7-40); Aspartate Aminotransferase 64 U/L (13-40); Lipase 84 U/L (12-53); Potassium 4.8 mmol/L (3.5-5.1)
[2023-10-18 16:05] LABS: Blood Urea Nitrogen 7 mg/dL (9-23)
[2023-10-18 18:05] VITALS: PULSE 122; RESP 18; O2SAT 99
[2023-10-18] MEDS: KETOROLAC TROMETH 30 MG/ML 1ML VIAL IV ONE (18:15)
[2023-10-18] MEDS: cefTRIAXone 1GM/50ML D5W 50 ML IV ONE (18:15)
[2023-10-18 19:40] VITALS: PULSE 118; RESP 18; O2SAT 98
[2023-10-18] MEDS ORDERED: DOCUSATE SOD 100 MG CAP PO PRN (19:45)
[2023-10-18] MEDS ORDERED: NITROGLYCERIN 0.4 MG SL TAB SL PRN (19:45)
[2023-10-18] MEDS ORDERED: DEXTROSE (50%) 50ML SYRG IV PRN (19:45)
[2023-10-18] MEDS ORDERED: MORPHINE SULFATE INJ 2 MG/ml SYRG IV PRN (19:45)
[2023-10-18] MEDS ORDERED: ACETAMINOPHEN 325 MG TAB PO PRN (19:45)
[2023-10-18] MEDS: SODIUM CHLORIDE 0.9% 1,000 ML IV SCH (20:50)
[2023-10-18] MEDS: ONDANSETRON HCL 4 MG/2 ML VIAL IV PRN (20:51)
[2023-10-18] MEDS: MORPHINE SULFATE INJ 2 MG/ml SYRG IV PRN (20:51)
[2023-10-18] MEDS: PIPERACILLIN-TAZOB 3.375GM 100 ML IV SCH (21:32)
[2023-10-19] MEDS: ACCU-CHEK COMFORT CURVE STRIP VI SCH (00:25)
[2023-10-19] MEDS: MORPHINE SULFATE INJ 2 MG/ml SYRG IV PRN (00:44)
[2023-10-19] MEDS: InsuLIN REG 1unit/0.01ml Soln (100units/ml) SC SCH (00:45)
[2023-10-19 05:39] LABS: Basophils # (auto) 0 10 ^3/uL (0-0.2); Basophils % (auto) 0.3 % (0.0-2.0); Eosinophils # (auto) 0.1 10 ^3/uL (0-0.8); Eosinophils % (auto) 0.8 % (0.0-7.0); Hematocrit 40.5 % (36.0-46.0); Hemoglobin 13.6 g/dL (12.2-16.2); Lymphocytes % (auto) 6.9 % (10.0-50.0); Mean Corpuscular Hemoglobin 30.1 pg (28.0-32.0); Mean Corpuscular Hgb Conc. 33.6 g/dL (32.0-36.0); Mean Corpuscular Volume 89.5 fL (80.0-100.0); Monocytes # (auto) 1.1 10 ^3/uL (0-1.3); Monocytes % (auto) 7.5 % (0.0-12.0); Neutrophils # (auto) 12.6 10 ^3/uL (1.6-8.6); Neutrophils % (auto) 84.5 % (37.0-80.0); Red Blood Cells 4.52 10^6/uL (4.0-5.20); Red Cell Distribution Width 12.9 % (11.8-14.3); White Blood Cell 14.9 10^3/uL (4.4-10.8)
[2023-10-19 06:03] LABS: Anion Gap 11 (5-15); Carbon Dioxide 21 mmol/L (20-30); Chloride 102 mmol/L (98-107)
[2023-10-19 06:04] LABS: Calcium 9.8 mg/dL (8.5-10.1)
[2023-10-19 06:09] LABS: Glucose 304 mg/dL (74-106)
[2023-10-19 06:10] LABS: Sodium 134 mmol/L (136-145)
[2023-10-19 07:23] LABS: Potassium 4.5 mmol/L (3.5-5.1)
[2023-10-19 07:53] LABS: BUN/Creatinine Ratio 13.3 (10.0-20.0); Blood Urea Nitrogen 11 mg/dL (9-23); Lipase 57 U/L (12-53)
[2023-10-19 08:00] VITALS: PULSE 98; RESP 13; O2SAT 96
[2023-10-19] MEDS: ENOXAPARIN SOD 40 MG/0.4 ML SYRINGE SC SCH (10:32)
[2023-10-19] MEDS: HYDROcodone-ACET 5/325MG TAB PO PRN (10:34)
[2023-10-20 06:17] LABS: Basophils # (auto) 0.1 10 ^3/uL (0-0.2); Basophils % (auto) 0.6 % (0.0-2.0); Eosinophils # (auto) 0.2 10 ^3/uL (0-0.8); Eosinophils % (auto) 2.1 % (0.0-7.0); Hematocrit 38.4 % (36.0-46.0); Hemoglobin 12.9 g/dL (12.2-16.2); Lymphocytes # (auto) 1.6 10 ^3/uL (0.4-5.4); Lymphocytes % (auto) 18.4 % (10.0-50.0); Mean Corpuscular Hemoglobin 30.4 pg (28.0-32.0); Mean Corpuscular Hgb Conc. 33.6 g/dL (32.0-36.0); Mean Corpuscular Volume 90.5 fL (80.0-100.0); Monocytes # (auto) 0.6 10 ^3/uL (0-1.3); Monocytes % (auto) 7.4 % (0.0-12.0); Neutrophils # (auto) 6.1 10 ^3/uL (1.6-8.6); Neutrophils % (auto) 71.5 % (37.0-80.0); Nucleated Red Blood Cells % 0.1 %; Red Blood Cells 4.24 10^6/uL (4.0-5.20); Red Cell Distribution Width 12.8 % (11.8-14.3); White Blood Cell 8.6 10^3/uL (4.4-10.8)
[2023-10-20 06:20] LABS: Chloride 106 mmol/L (98-107); Potassium 3.3 mmol/L (3.5-5.1); Sodium 138 mmol/L (136-145)
[2023-10-20 06:21] LABS: Anion Gap 9 (5-15); Calcium 9.4 mg/dL (8.7-10.4); Carbon Dioxide 23 mmol/L (20-30)
[2023-10-20 06:26] LABS: BUN/Creatinine Ratio 29.3 (10.0-20.0); Blood Urea Nitrogen 17 mg/dL (9-23); Glucose 201 mg/dL (74-106)
[2023-10-20 09:33] VITALS: BP 120/86; PULSE 88; PULSE 92; RESP 17; RESP 20; TEMP 97.8; O2SAT 96; O2SAT 98
[2023-10-20] MEDS ORDERED: PANT40T PO (09:59)
[2023-10-20] MEDS ORDERED: DORZ2SOL26 (09:59)
[2023-10-20] MEDS ORDERED: ERGO1CAP12 PO (09:59)
[2023-10-20 13:00] VITALS: BP 107/72; PULSE 92; RESP 18; TEMP 97.9; O2SAT 97
[2023-10-20 17:00] VITALS: BP 115/80; PULSE 88; RESP 17; TEMP 97.8; O2SAT 98
[2023-10-20 20:00] VITALS: BP 113/75; PULSE 78; PULSE 89; PULSE 90; RESP 17; RESP 20; TEMP 98.6; O2SAT 97
[2023-10-20] MEDS: PIPERACILLIN-TAZOB 3.375GM 100 ML IV SCH (20:44)
[2023-10-20 22:00] VITALS: BP 113/75; PULSE 90; RESP 20; TEMP 97.8; O2SAT 97
[2023-10-21 00:54] VITALS: BP 106/65; PULSE 83; RESP 17; TEMP 98; O2SAT 96
[2023-10-21 05:00] VITALS: BP 114/78; PULSE 80; RESP 20; TEMP 98; O2SAT 97
[2023-10-21 06:20] LABS: Chloride 102 mmol/L (98-107); Potassium 3.2 mmol/L (3.5-5.1); Sodium 135 mmol/L (136-145)
[2023-10-21 06:21] LABS: Anion Gap 7 (5-15); Calcium 9.4 mg/dL (8.7-10.4); Carbon Dioxide 26 mmol/L (20-30)
[2023-10-21 06:25] LABS: Basophils # (auto) 0 10 ^3/uL (0-0.2); Basophils % (auto) 0.3 % (0.0-2.0); Eosinophils # (auto) 0.1 10 ^3/uL (0-0.8); Eosinophils % (auto) 2.1 % (0.0-7.0); Hematocrit 37.8 % (36.0-46.0); Hemoglobin 12.7 g/dL (12.2-16.2); Lymphocytes # (auto) 1.3 10 ^3/uL (0.4-5.4); Lymphocytes % (auto) 20.9 % (10.0-50.0); Mean Corpuscular Hemoglobin 30.4 pg (28.0-32.0); Mean Corpuscular Hgb Conc. 33.8 g/dL (32.0-36.0); Mean Corpuscular Volume 90.1 fL (80.0-100.0); Monocytes # (auto) 0.4 10 ^3/uL (0-1.3); Monocytes % (auto) 7.3 % (0.0-12.0); Neutrophils # (auto) 4.2 10 ^3/uL (1.6-8.6); Neutrophils % (auto) 69.4 % (37.0-80.0); Red Blood Cells 4.19 10^6/uL (4.0-5.20); Red Cell Distribution Width 12.6 % (11.8-14.3); White Blood Cell 6.1 10^3/uL (4.4-10.8)
[2023-10-21 06:26] LABS: BUN/Creatinine Ratio 28.3 (10.0-20.0); Blood Urea Nitrogen 15 mg/dL (9-23); Glucose 210 mg/dL (74-106)
[2023-10-21 08:00] VITALS: PULSE 75; PULSE 86; RESP 20; O2SAT 99
[2023-10-21 09:04] VITALS: BP 101/69; PULSE 86; RESP 20; TEMP 98.1; O2SAT 99
[2023-10-21 12:40] VITALS: BP 104/67; PULSE 83; RESP 20; TEMP 98.1; O2SAT 97
[2023-10-21 17:13] VITALS: BP 111/77; PULSE 87; RESP 20; TEMP 97.9; O2SAT 97
== END 2023-10-21 18:25 | disposition home or self-care (01) | DRG 439 ==
LOC: ER 14:54 → TELE 19:58 → TELE-WESTW 10-20 09:32
PROVIDERS: ADMIT Nurse Practitioner Family; ATTEND Internal Medicine
DX: K85.90 Acute pancreatitis without necrosis or infection, unspecified (principal); E87.1 Hypo-osmolality and hyponatremia; I10 Essential (primary) hypertension; E78.5 Hyperlipidemia, unspecified; E11.65 Type 2 diabetes mellitus with hyperglycemia; R16.0 Hepatomegaly, not elsewhere classified; R79.89 Other specified abnormal findings of blood chemistry; D72.829 Elevated white blood cell count, unspecified; Z79.4 Long term (current) use of insulin; Z87.442 Personal history of urinary calculi; Z90.49 Acquired absence of other specified parts of digestive tract; Z83.3 Family history of diabetes mellitus
CPT/HCPCS: 36415; 71045; 74176; 80048; 80053; 80307; 80320; 81001; 81025; 82962; 83036; 83690; 84484; 84702; 85025; 85610; 85730; 87040; 93005; 96365; 96375; G0378; J1815; J1885; J2405; J2543

== ENCOUNTER 2024-08-20 15:47 | Emergency (ER) | payer OTHER, MEDICAID ==
[~2024-08-20] VITALS: Ht 162.6 cm; Wt 65.3 kg
[~2024-08-20 15:47] MED LIST changes: +DORZ2SOL26; +ERGO1CAP12 PO; -LEVO500T31 PO; +PANT40T PO
[2024-08-20 16:42] VITALS: BP 131/82; PULSE 116; RESP 16; TEMP 97.3; O2SAT 97
--- NOTE | 2024-08-20 16:59 | ED.PDOC ---
Back pain HPI HPI Comments A 34 YEAR OLD FEMALE PRESENTS TO THE ED WITH COMPLAINT OF PATIENT STATES SHE HAS BEEN EXPERIENCING LEFT UPPER BACK PAIN FOR THE PAST 4 DAYS. MOVEMENT AND PHYSICAL ACTIVITY INCREASES LEFT UPPER BACK PAIN. PATIENT DENIES INJURY TO THE AFFECTED AREA, FEVER, CHILLS, SHORTNESS OF BREATH, CHEST PAIN, ABDOMINAL PAIN, NAUSEA, VOMITING, HEADACHE, OR OTHER COMPLAINTS. NO OTHER SYMPTOMS OR MODIFYING FACTORS AT THIS TIME. PATIENT IS ALERT, ORIENTED X 4, AND HAS STEADY GAIT. Chief Complaint: Back Pain Time Seen by MD: 16:13 Primary Care Provider: GRAHAM Centeno Notes: Nurses Notes, Medications, Allergies Allergies: Coded Allergies: NO KNOWN ALLERGIES (Unverified , 11/03/19) Home Meds Active Scripts Methocarbamol (Methocarbamol) 750 Mg Tab, 750 MG PO BID, #20 TAB Prov:FRANCISCO BLACKMON 08/20/24 Acetaminophen (Tylenol Extra Strength Fo) 500 Mg Tab, 1000 MG PO BID, #30 TAB Prov:FRANCISCO BLACKMON 08/20/24 Metronidazole (Flagyl) 500 Mg Tab, 500 MG PO Q8HR for 7 Days, #21 TAB Prov:YAHIR BAUTISTA TAX MAP TECHNICIAN 02/25/22 Acetaminophen (Acetaminophen) 500 Mg Tab, 500 MG PO QID, #30 TAB 0 Refills Prov:APARNA JAMES 12/25/21 Carbamide Peroxide (Debrox) 6.5 % Elisabeth, 5 DROP OT BID for 4 Days, #1 BOTTLE 0 Refills Prov:APARNA JAMES 12/25/21 Amoxicillin & Pot Clavulanate (Amoxicillin/Potassium Cla) 875 Mg Tab, 1 TAB PO BID for 7 Days, #14 TAB 0 Refills Prov:APARNA JAMES 12/25/21 Nitrofurantoin Monohydrate Mac (Macrobid) 100 Mg Cap, 100 MG PO BID for 5 Days, #10 CAP Prov:TALYA UNGER MD 12/03/21 Ondansetron (Zofran) 4 Mg Tab, 1 TAB PO Q6HR, #20 TAB Prov:TALYA UNGER MD 12/03/21 Tramadol Hcl (Ultram) 50 Mg Tab, 1 TAB PO Q6HR, #30 TAB Prov:TALYA UNGER MD 12/03/21 Insulin Glargine (Lantus) 100 Unit/Ml Inj, 35 UNIT SC QPM, #30 INJ Prov:DELMI DELACRUZ MD 04/05/20 Gemfibrozil (Gemfibrozil) 600 Mg Tab, 1 TAB PO BID, #60 TAB 0 Refills Prov:DELMI DELACRUZ MD 04/05/20 Reported Medications Dorzolamide HCl (Dorzolamide Hydrochloride) 2 % Elisabeth 10/20/23 Ergocalciferol (Vitamin D) 50,000 Unit Cap, 1 CAP PO QWEEKLY 10/20/23 Pantoprazole Sodium Sesquihydr (Pantoprazole Sodium) 40 Mg Tab, 1 TAB PO BID 10/20/23 Atorvastatin Calcium (Lipitor) 40 Mg Tab, 1 TAB PO QPM, #90 TAB 1 Refill 04/21/21 Cyanocobalamin (Vitamin B12) Unknown Strength Tab, PO DAILY, TAB 04/03/20 Cholecalciferol (Vitamin D3) 1,000 Unit Tab, 1000 UNIT PO DAILY, TAB 04/03/20 Losartan Potassium (Losartan Potassium) 50 Mg Tab, 50 MG PO DAILY for 30 Days, MG 04/03/20 Hydrocodone-Acetaminophen ([place] 5/325MG) 1 Tab Tb, 1 TAB PO PRN, #90 TAB 04/03/20 Latanoprost (LATANOPROST) 0.005 % Elisabeth, 1 DROP EACHEYE QPM, #7.5 ML 3 Refills 04/03/20 Insulin Regular (Human) (Humulin R) 100 Unit/Ml Inj, 12 UNIT SC TIDWM, INJ 11/04/19 Metformin Hydrochloride (Metformin Hcl) 500 Mg Tab, 1000 MG PO IBID for 30 Days, MG 11/04/19 Information Source: Patient Mode of Arrival: Ambulatory Timing: Days Duration: Since onset, Days Location of Back pain: (L) Upper back Severity: Moderate Prehospital treatment: None Quality: Aching, Cramping Onset: Spontaneous History of: None Modifying Factors: Movement Associated signs and symptoms: None Past Medical History PAST MEDICAL HISTORY: DM, High Lipids, HTN, Kidney Stones Surgical History: Cholecystectomy ELECTRONIC TECHNOLOGIST History: No Pertinent ELECTRONIC TECHNOLOGIST History Family History Family History: Reviewed,noncontributory to illness, Family hx of DM Social History Smoker: Non-Smoker Alcohol: Denies ETOH Use Drugs: Denies Drug Use Lives In: Home Constitutional: denies: chills, diaphoresis, fatigue, fever, malaise, sweats, weakness, others EENTM: denies: blurred vision, double vision, ear bleeding, ear discharge, ear drainage, ear pain, ear ringing, eye pain, eye redness, hearing loss, mouth pain, mouth swelling, nasal discharge, nose bleeding, nose congestion, nose pain, photophobia, tearing, throat pain, throat swelling, voice changes, others Respiratory: denies: cough, hemoptysis, orthopnea, SOB at rest, shortness of breath, SOB with excertion, stridor, wheezing, others Cardiovascular: denies: chest pain, dizzy spells, diaphoresis, Dyspnea on exertion, edema, irregular heart beat, left arm pain, lightheadedness, palpitations, PND, syncope, others Gastrointestinal: denies: abdomen distended, abdominal pain, blood streaked bowels, constipated, diarrhea, dysphagia, difficulty swallowing, hematemesis, melena, nausea, poor appetite, poor fluid intake, rectal bleeding, rectal pain, vomiting, others Genitourinary: denies: abnormal vagina bleeding, burning, dyspareunia, dysuria, flank pain, frequency, hematuria, incontinence, pain, , vagina discharge, urgency, others Neurological: denies: dizziness, fainting, headache, left sided numbness, left sided weakness, numbness, paresthesia, pre-existing deficit, right sided numbness, right sided weakness, seizure, speech problems, tingling, tremors, weakness, others Musculoskeletal: reports: back pain (LEFT UPPER BACK PAIN), muscle pain; denies: gout, joint pain, joint swelling, muscle stiffness, neck pain, others Integumetry: denies: bruises, change in color, change in hair/nails, dryness, laceration, lesions, lumps, rash, wounds, others Allergic/Immunocompromised: denies: Difficulty Healing, Frequent Infections, Hives, Itching, others Hematologic/Lymphatic: denies: anemia, blood clots, easy bleeding, easy bruising, swollen glands, others Endocrine: denies: excessive hunger, excessive sweating, excessive thirst, excessive urination, flushing, intolerance to cold, intolerance to heat, unexplained weight gain, unexplained weight loss, others Psychiatric: denies: anxiety, bipolar disorder, depression, hopeless, panic dis order, schizophrenia, sleepless, suicidal, others All Other Systems: Reviewed and Negative Physical Exam General Appearance: No Apparent Distress, Normal HEENT: Normal ENT Inspection, PERRL/EOMI, Pharynx Normal, TMs Normal Neck: Full Range of Motion, Non-Tender, Normal, Normal Inspection Respiratory: Chest Non-Tender, Lungs Clear, No Accessory Muscle Use, No Respiratory Distress, Normal Breath Sounds Cardiovascular: No Edema, No JVD, No Murmur, No Gallop, Normal Peripheral Pulses, Regular Rate/Rhythm Breast Exam: Deferred Gastrointestinal: No Organomegaly, Non Tender, No Pulsatile Mass, Normal Bowel Sounds, Soft Genitalia: Deferred Pelvic: Deferred Rectal: Deferred Extremities: No calf tenderness, Normal capillary refill, Normal inspection, Normal range of motion, Non-tender, No pedal edema Musculoskeletal : Location: Left Extremity Location: Back Apperance: Tenderness (MUSCLE SPASM ON LEFT UPPER BACK, NO BONY TENDERNESS, SWELLING AND DEFORMITY. ) Neurologic: Alert, hook up driver II-XII nml as Tested, No Motor Deficits, Normal Affect, Normal Mood, No Sensory Deficits Cerebellar Function: Normal Reflexes: Normal Skin: Dry, Normal Color, Warm Peripheral Pulses: 2+ carotid (R), 2+ carotid (L) Lymphatic: No Adenopathy Was a procedure done? Was a procedure done?: No Back Pain Differential Dx Differential Diagnosis: DJD, Musculoskeletal Pain, Strain Other Differential Diagnosis MUSCLE SPASM X-Ray, Labs, Meds, VS Vital Signs Date Time Temp Pulse Resp B/P (MAP) Pulse Ox O2 Delivery O2 Flow Rate FiO2 08/20/24 16:42 97.3 116 16 131/82 (98) 97 97.3 08/20/24 16:42 116 16 97 Room Air 08/20/24 16:35 97.8 116 16 131/82 (98) 97 97.8 CHEST RADIOGRAPH Indication: LEFT UPPER BACK PAIN, NO INJURY Technique: Frontal and lateral view of the chest was obtained Comparison: None FINDINGS: Lines and Tubes: None Lungs: Clear Pleura: No effusion. No pneumothorax. Cardiomediastinal contours: Unremarkable Bones: Unremarkable IMPRESSION: 1. No evidence of acute disease. ATED BY: LA SULTANA MD DICTATED DATE/TIME: [id number] SIGNED BY: LA SULTANA MD SIGNED DATE/TIME: 08/20/241717 CC: X-Ray, Labs, Meds, VS Comment EXTERNAL MEDICAL RECORDS REVIEWED: [NONE] INDEPENDENT HISTORIANS: [NONE] SOCIAL DETERMINANTS OF HEALTH: [NONE] LABS ORDERED: NONE REVIEWED AND INTERPRETED RESULTS: NONE IMAGING ORDERED: XR CHEST TREATMENTS ORDERED: TYLENOL 1 G P.O. PROCEDURES PERFORMED: NONE CRITICAL CARE TIME: NONE I HAVE DISCUSSED THE PATIENT WITH THE ATTENDING PHYSICIAN DR. MACIAS AND HE AGREES WITH THE PATIENT'S PLAN OF CARE AND DISPOSITION. BASED ON HISTORY OF PRESENT ILLNESS, AND PHYSICAL EXAM, PATIENT WILL BE DISCHARGED HOME. DISCUSSED PLAN FOR DISCHARGE HOME WITH RX [TYLENOL AND ROBAXIN]. MEDICATION WARNINGS GIVEN. SHARED DECISION MAKING: PATIENT INSTRUCTED TO FOLLOW UP WITH PRIMARY CARE PROVIDER IN 1-2 DAYS FOR RE-EVALUATION OF SYMPTOMS. PATIENT VERBALIZES UNDERSTANDING TO RETURN TO ED FOR NEW OR WORSENING SYMPTOMS OR IF FOLLOW UP WITH PCP CANNOT BE OBTAINED. PATIENT FEELS COMFORTABLE GOING HOME AT THIS TIME. ALL QUESTIONS ADDRESSED AT TIME OF DISCHARGE. Images Reviewed?: Images reviewed and evaluated by me Time of 1ST Reevaluation: 17:40 Reevaluation 1ST: Improved Patient Education/Counseling: Diagnosis, Treatment, Need For Follow Up Family Education/Counseling: Diagnosis, Treatment, Need For Follow Up Medical Screening: No EMC Exist At This Time Departure 1 Departure Time of Disposition: 17:40 Impression: Primary Impression: Muscle strain of left upper back Qualified Codes: S29.012A - Strain of muscle and tendon of back wall of thorax, initial encounter Disposition: HOME / SELF CARE / HOMELESS Condition: Stable Additional Instructions: FOLLOW-UP WITH PCP IN 1 TO 2 DAYS. TAKE MEDICATIONS PRESCRIBED. RETURN TO ED FOR ANY NEW OR WORSENING SYMPTOMS. e-Prescriptions Methocarbamol (Methocarbamol) 750 Mg Tab 750 MG PO BID, #20 TAB Prov: FRANCISCO BLACKMON 08/20/24 Acetaminophen (Tylenol Extra Strength Fo) 500 Mg Tab 1000 MG PO BID, #30 TAB Prov: FRANCISCO BLACKMON 08/20/24 Discharged With: Self Critical Care Note Critical Care Time?: No Stability Stability form required: No I personally scribed for FRANCISCO BLACKMON ([email or web address]) on 08/20/24 at 16:59. Electronically submitted by Franki Manuel ([email or web address]). I personally scribed for FRANCISCO BLACKMON ([email or web address]) on 08/20/24 at 17:24. Electronically submitted by Franki Manuel ([email or web address]). FRANCISCO BLACKMON Aug 20, 2024 16:59
--- NOTE | 2024-08-20 17:20 | DVH ---
CHEST RADIOGRAPH Indication: LEFT UPPER BACK PAIN, NO INJURY Technique: Frontal and lateral view of the chest was obtained Comparison: None FINDINGS: Lines and Tubes: None Lungs: Clear Pleura: No effusion. No pneumothorax. Cardiomediastinal contours: Unremarkable Bones: Unremarkable IMPRESSION: 1. No evidence of acute disease.
[2024-08-20] MEDS ORDERED: METH-1182 PO (17:25)
[2024-08-20] MEDS ORDERED: ACET-1304 PO (17:25)
[2024-08-20] MEDS: ACETAMINOPHEN 325 MG TAB PO ONE (17:29)
== END 2024-08-20 17:35 | disposition home or self-care (01) ==
LOC: ER 15:47
DX: S29.012A Strain of muscle and tendon of back wall of thorax, initial encounter (principal); I10 Essential (primary) hypertension; E11.9 Type 2 diabetes mellitus without complications; E78.5 Hyperlipidemia, unspecified; Z90.49 Acquired absence of other specified parts of digestive tract; Z79.899 Other long term (current) drug therapy; Z79.4 Long term (current) use of insulin; Z79.2 Long term (current) use of antibiotics; X58.XXXA Exposure to other specified factors, initial encounter; Y93.89 Activity, other specified; Y92.89 Other specified places as the place of occurrence of the external cause; Y99.8 Other external cause status
CPT/HCPCS: 71046

== ENCOUNTER 2024-09-30 08:13 | Emergency (ER) | payer MEDICARE, MEDICAID ==
[~2024-09-30] VITALS: Ht 162.6 cm; Wt 65.4 kg
[~2024-09-30 08:13] MED LIST changes: +ACET-1304 PO; +METH-1182 PO
[2024-09-30 09:02] VITALS: BP 127/86; PULSE 111; RESP 19; TEMP 97.9; O2SAT 98
--- NOTE | 2024-09-30 09:10 | ED.PDOC ---
General HPI Comments A 34 YEAR OLD FEMALE PRESENTS TO THE ED WITH CHIEF COMPLAINT OF ABDOMINAL PAIN. PATIENT REPORTS THAT SHE HAS BEEN EXPERIENCING SUPRAPUBIC ABDOMINAL PAIN WITH ASSOCIATED RADIATION TO THE BACK AND DIFFICULTY URINATING FOR THE PAST 2 DAYS. PER PT, SHE HAS HX OF KIDNEY STONES AND THE SYMPTOMS IS SAME BEFORE KIDNEY. PATIENT DENIES ANY DYSURIA, HEMATURIA, FEVER, CHILLS, OR N/V/D. NO FURTHER SYMPTOMS OR COMPLAINTS DURING TREATMENT. Chief Complaint: Abdominal Pain Time Seen by MD: 09:03 Primary Care Provider: GRAHAM Centeno notes: Nurses Notes, Medications, Allergies Allergies: Coded Allergies: NO KNOWN ALLERGIES (Unverified , 11/03/19) Home Meds Active Scripts Ibuprofen (Ibuprofen) 800 Mg Tab, 1 TAB PO TID, #30 TAB Prov:FRANCISCO BLACKMON 09/30/24 Methocarbamol (Methocarbamol) 750 Mg Tab, 750 MG PO BID, #20 TAB Prov:FRANCISCO BLACKMON 08/20/24 Acetaminophen (Tylenol Extra Strength Fo) 500 Mg Tab, 1000 MG PO BID, #30 TAB Prov:FRANCISCO BLACKMON 08/20/24 Metronidazole (Flagyl) 500 Mg Tab, 500 MG PO Q8HR for 7 Days, #21 TAB Prov:YAHIR BAUTISTAP 02/25/22 Acetaminophen (Acetaminophen) 500 Mg Tab, 500 MG PO QID, #30 TAB 0 Refills Prov:APARNA JAMES 12/25/21 Carbamide Peroxide (Debrox) 6.5 % Elisabeth, 5 DROP OT BID for 4 Days, #1 BOTTLE 0 Refills Prov:APARNA JAMES 12/25/21 Amoxicillin & Pot Clavulanate (Amoxicillin/Potassium Cla) 875 Mg Tab, 1 TAB PO BID for 7 Days, #14 TAB 0 Refills Prov:APARNA JAMES 12/25/21 Nitrofurantoin Monohydrate Mac (Macrobid) 100 Mg Cap, 100 MG PO BID for 5 Days, #10 CAP Prov:TALYA UNGER MD 12/03/21 Ondansetron (Zofran) 4 Mg Tab, 1 TAB PO Q6HR, #20 TAB Prov:TALYA UNGER MD 12/03/21 Tramadol Hcl (Ultram) 50 Mg Tab, 1 TAB PO Q6HR, #30 TAB Prov:TALYA UNGER MD 12/03/21 Insulin Glargine (Lantus) 100 Unit/Ml Inj, 35 UNIT SC QPM, #30 INJ Prov:DELMI DELACRUZ MD 04/05/20 Gemfibrozil (Gemfibrozil) 600 Mg Tab, 1 TAB PO BID, #60 TAB 0 Refills Prov:DELMI DELACRUZ MD 04/05/20 Reported Medications Dorzolamide HCl (Dorzolamide Hydrochloride) 2 % Elisabeth 10/20/23 Ergocalciferol (Vitamin D) 50,000 Unit Cap, 1 CAP PO QWEEKLY 10/20/23 Pantoprazole Sodium Sesquihydr (Pantoprazole Sodium) 40 Mg Tab, 1 TAB PO BID 10/20/23 Atorvastatin Calcium (Lipitor) 40 Mg Tab, 1 TAB PO QPM, #90 TAB 1 Refill 04/21/21 Cyanocobalamin (Vitamin B12) Unknown Strength Tab, PO DAILY, TAB 04/03/20 Cholecalciferol (Vitamin D3) 1,000 Unit Tab, 1000 UNIT PO DAILY, TAB 04/03/20 Losartan Potassium (Losartan Potassium) 50 Mg Tab, 50 MG PO DAILY for 30 Days, MG 04/03/20 Hydrocodone-Acetaminophen ([place] 5/325MG) 1 Tab Tb, 1 TAB PO PRN, #90 TAB 04/03/20 Latanoprost (LATANOPROST) 0.005 % Elisabeth, 1 DROP EACHEYE QPM, #7.5 ML 3 Refills 04/03/20 Insulin Regular (Human) (Humulin R) 100 Unit/Ml Inj, 12 UNIT SC TIDWM, INJ 11/04/19 Metformin Hydrochloride (Metformin Hcl) 500 Mg Tab, 1000 MG PO IBID for 30 Days, MG 11/04/19 Information Source: Patient Mode of Arrival: Ambulatory Severity: Moderate Timing: Days Duration: Since onset Prehospital treatment: None Onset: Spontaneous Symptoms: Inability to void History of: Kidney stone Location: Suprapubic associated signs and symptoms: Abdominal Pain, Back Pain Past Medical History PAST MEDICAL HISTORY: DM, High Lipids, HTN, Kidney Stones Surgical History: Cholecystectomy ASSEMBLER HYDRAULIC BACKHOE History: No Pertinent ASSEMBLER HYDRAULIC BACKHOE History Family History Family History: Reviewed,noncontributory to illness, Family hx of DM Social History Smoker: Non-Smoker Alcohol: Denies ETOH Use Drugs: Denies Drug Use Lives In: Home Constitutional: denies: chills, diaphoresis, fatigue, fever, malaise, sweats, weakness, others EENTM: denies: blurred vision, double vision, ear bleeding, ear discharge, ear drainage, ear pain, ear ringing, eye pain, eye redness, hearing loss, mouth pain, mouth swelling, nasal discharge, nose bleeding, nose congestion, nose pain, photophobia, tearing, throat pain, throat swelling, voice changes, others Respiratory: denies: cough, hemoptysis, orthopnea, SOB at rest, shortness of breath, SOB with excertion, stridor, wheezing, others Cardiovascular: denies: chest pain, dizzy spells, diaphoresis, Dyspnea on exertion, edema, irregular heart beat, left arm pain, lightheadedness, palpitations, PND, syncope, others Gastrointestinal: reports: abdominal pain; denies: abdomen distended, blood streaked bowels, constipated, diarrhea, dysphagia, difficulty swallowing, hematemesis, melena, nausea, poor appetite, poor fluid intake, rectal bleeding, rectal pain, vomiting, others Genitourinary: reports: others (DIFFICULTY URINATING); denies: abnormal vagina bleeding, burning, dyspareunia, dysuria, flank pain, frequency, hematuria, incontinence, pain, , vagina discharge, urgency Neurological: denies: dizziness, fainting, headache, left sided numbness, left sided weakness, numbness, paresthesia, pre-existing deficit, right sided numbness, right sided weakness, seizure, speech problems, tingling, tremors, weakness, others Musculoskeletal: reports: back pain; denies: gout, joint pain, joint swelling, muscle pain, muscle stiffness, neck pain, others Integumetry: denies: bruises, change in color, change in hair/nails, dryness, laceration, lesions, lumps, rash, wounds, others Allergic/Immunocompromised: denies: Difficulty Healing, Frequent Infections, Hives, Itching, others Hematologic/Lymphatic: denies: anemia, blood clots, easy bleeding, easy bruising, swollen glands, others Endocrine: denies: excessive hunger, excessive sweating, excessive thirst, excessive urination, flushing, intolerance to cold, intolerance to heat, unexplained weight gain, unexplained weight loss, others Psychiatric: denies: anxiety, bipolar disorder, depression, hopeless, panic disorder, schizophrenia, sleepless, suicidal, others All Other Systems: Reviewed and Negative Physical Exam General Appearance: No Apparent Distress, Normal HEENT: Normal ENT Inspection, PERRL/EOMI, Pharynx Normal, TMs Normal Neck: Full Range of Motion, Non-Tender, Normal, Normal Inspection Respiratory: Chest Non-Tender, Lungs Clear, No Accessory Muscle Use, No Respiratory Distress, Normal Breath Sounds Cardiovascular: No Edema, No JVD, No Murmur, No Gallop, Normal Peripheral Pulses, Regular Rate/Rhythm Breast Exam: Deferred Gastrointestinal: LLQ, No Organomegaly, No Pulsatile Mass, Normal Bowel Sounds, RLQ, Soft, Tenderness (LOWER ABD, NO GUARDING AND REBOUND TENDERNESS. ) Genitalia: Deferred Pelvic: Deferred Rectal: Deferred Extremities: No calf tenderness, Normal capillary refill, Normal inspection, Normal range of motion, Non-tender, No pedal edema Musculoskeletal : Apperance: Normal Neurologic: Alert, client integration manager II-XII nml as Tested, No Motor Deficits, Normal Affect, Normal Mood, No Sensory Deficits Cerebellar Function: Normal Reflexes: Normal Skin: Dry, Normal Color, Warm Peripheral Pulses: 2+ carotid (R), 2+ carotid (L) Lymphatic: No Adenopathy Was a procedure done? Was a procedure done?: No Differential Diagnosis Kidney stone (Female): Musculoskeletal pain, Pyelonephritis, Strain Urinary Problem (Female): Appendicitis, Pyelonephritis, Urinary retention, Urolithiasis, UTI X-Ray, Labs, Meds, VS Vital Signs Date Time Temp Pulse Resp B/P (MAP) Pulse Ox O2 Delivery O2 Flow Rate FiO2 09/30/24 09:02 97.9 111 19 127/86 (100) 98 97.9 09/30/24 09:02 111 19 98 Room Air 09/30/24 08:23 97.9 111 19 127/86 (100) 98 97.9 Lab Test 09/30/24 09:01 09/30/24 08:22 Range/Units White Blood Count 6.7 4.4-10.8 10^3/uL Red Blood Count 4.99 4.0-5.20 10^6/uL Hemoglobin 15.4 12.2-16.2 g/dL Hematocrit 44.9 36.0-46.0 % Mean Corpuscular Volume 89.9 80.0-100.0 fL Mean Corpuscular Hemoglobin 30.8 28.0-32.0 pg Mean Corpuscular Hemoglobin Concent 34.3 32.0-36.0 g/dL Red Cell Distribution Width 12.9 11.8-14.3 % Platelet Count 325 140-450 10^3/uL Mean Platelet Volume 9.9 6.9-10.8 fL Neutrophils (%) (Auto) 71.3 37.0-80.0 % Lymphocytes (%) (Auto) 21.7 10.0-50.0 % Monocytes (%) (Auto) 5.8 0.0-12.0 % Eosinophils (%) (Auto) 0.9 0.0-7.0 % Basophils (%) (Auto) 0.3 0.0-2.0 % Neutrophils # (Auto) 4.8 1.6-8.6 10 ^3/uL Lymphocytes # (Auto) 1.5 0.4-5.4 10 ^3/uL Monocytes # (Auto) 0.4 0-1.3 10 ^3/uL Eosinophils # (Auto) 0.1 0-0.8 10 ^3/uL Basophils # (Auto) 0 0-0.2 10 ^3/uL Nucleated Red Blood Cells 0.1 % Sodium Level 135 L 136-145 mmol/L Potassium Level 4.0 3.5-5.1 mmol/L Chloride Level 99 98-107 mmol/L Carbon Dioxide Level 21 20-31 mmol/L Anion Gap 15 5-15 Blood Urea Nitrogen 6 L 9-23 mg/dL Creatinine 0.66 0.550-1.02 mg/dL Glomerular Filtration Rate Calc 117 >90 mL/min BUN/Creatinine Ratio 9.1 L 10.0-20.0 Serum Glucose 325 H 74-106 mg/dL Calcium Level 10.1 8.7-10.4 mg/dL Urine Color Light-yellow Yellow Urine Clarity Clear Clear Urine pH 5.5 5.0-9.0 Urine Specific [place] 1.046 H 1.001-1.035 Urine Protein Trace H Negative Urine Ketones 4+ H Negative Urine Blood Trace H Negative /uL Urine Nitrite Negative Negative Urine Bilirubin Negative Negative Urine Urobilinogen Normal Negative mg/dL Urine Leukocyte Esterase Negative Negative /uL Urine RBC 1 0 - 4 /hpf Urine Microscopic WBC 3 0-5 /HPF Urine Squamous Epithelial Cells Few <5 /hpf Urine Bacteria Few H None Seen /hpf Urine Yeast (Budding) Occasional None Seen /hpf Urine Glucose 4+ H Normal mg/dL Current Medications Medications (Trade) Dose Ordered Sig/Coty Route Start Time Stop Time Status Last Admin Sodium Chloride 1,000 ml @ 1,000 mls/hr Q1H ONCE IV 09/30/24 10:00 09/30/24 10:59 DC 09/30/24 10:56 Ketorolac Tromethamine (Toradol Injection) 30 mg ONCE ONCE IV 09/30/24 10:00 09/30/24 10:01 DC 09/30/24 10:48 CT ABD/PEL: FINDINGS: Evaluation of the abdomen and pelvis is limited without intravenous contrast. The gallbladder is surgically absent. The liver, pancreas, kidneys, adrenal glands, and spleen appear within normal limits. There is no gross evidence of abdominal lymphadenopathy. There is no free fluid or free air. The stomach grossly appears unremarkable. The small and large bowel loops demonstrate normal caliber and distribution. The appendix is not seen in the right lower quadrant abdomen. There are no secondary signs of acute appendicitis. The abdominal aorta and IVC appear within normal limits. The bladder appears unremarkable for the degree of distention. Pelvic organ appears within normal limits. There is no gross evidence of a pelvic mass. There is no free fluid collection. Lung bases are clear. There is no acute osseous abnormality. IMPRESSION: 1. There is no acute process in the abdomen and pelvis. HS:Y X-Ray, Labs, Meds, VS Comment EXTERNAL MEDICAL RECORDS REVIEWED: 08/20/24 FOR MUSCLE STRAIN INDEPENDENT HISTORIANS: [NONE] SOCIAL DETERMINANTS OF HEALTH: [NONE] LABS ORDERED: CBC, BMP, UA REVIEWED AND INTERPRETED RESULTS: CT ABD/PEL IMAGING ORDERED: CT ABD/PEL TREATMENTS ORDERED: TORADOL 30 IV, NS 1L IV PROCEDURES PERFORMED: NONE CRITICAL CARE TIME: NONE I HAVE DISCUSSED THE PATIENT WITH THE ATTENDING PHYSICIAN DR. VANEGAS AND HE AGREES WITH THE PATIENT'S PLAN OF CARE AND DISPOSITION. BASED ON HISTORY OF PRESENT ILLNESS, AND PHYSICAL EXAM, PATIENT WILL BE DISCHARGED HOME. DISCUSSED PLAN FOR DISCHARGE HOME WITH RX: MOTRIN 800MG. MEDICATION WARNINGS GIVEN. SHARED DECISION MAKING: DISCUSSED WITH PATIENT THAT THEIR WORKUP WAS NORMAL. PATIENT INSTRUCTED TO FOLLOW UP WITH PRIMARY CARE PROVIDER IN 1-2 DAYS FOR RE- EVALUATION OF SYMPTOMS. PATIENT VERBALIZES UNDERSTANDING TO RETURN TO ED FOR NEW OR WORSENING SYMPTOMS OR IF FOLLOW UP WITH PCP CANNOT BE OBTAINED. PATIENT FEELS COMFORTABLE GOING HOME AT THIS TIME. ALL QUESTIONS ADDRESSED AT TIME OF DISCHARGE. Images Reviewed?: Images reviewed and evaluated by me Time of 1ST Reevaluation: 12:30 Reevaluation 1ST: Improved Patient Education/Counseling: Diagnosis, Treatment, Need For Follow Up Family Education/Counseling: Diagnosis, Treatment, No Family Present Medical Screening: No EMC Exist At This Time Departure 1 Departure Time of Disposition: 12:24 Impression: Primary Impression: Acute bilateral lower abdominal pain Additional Impressions: Hx of renal calculi Uncontrolled diabetes mellitus Qualified Codes: E11.65 - Type 2 diabetes mellitus with hyperglycemia Disposition: 01 HOME / SELF CARE / HOMELESS Condition: Stable Additional Instructions: FOLLOW-UP WITH PCP IN 1 TO 2 DAYS. TAKE MEDICATIONS PRESCRIBED. RETURN TO ED FOR ANY NEW OR WORSENING SYMPTOMS. e-Prescriptions Ibuprofen (Ibuprofen) 800 Mg Tab 1 TAB PO TID, #30 TAB Prov: FRANCISCO BLACKMON 09/30/24 Discharged With: Self Critical Care Note Critical Care Time?: No Stability Stability form required: No Heart Score Heart Score: Heart Score Response (Comments) Value History N/A 0 EKG N/A 0 Age N/A 0 Risk Factors N/A 0 Troponin N/A 0 Total 0 I personally scribed for FRANCISCO BLACKMON ([email or web address]) on 09/30/24 at 09:10. Electronically submitted by Joel Bravo ([email or web address]). I personally scribed for FRANCISCO BLACKMON ([email or web address]) on 09/30/24 at 10:06. Electronically submitted by Joel Bravo ([email or web address]). I personally scribed for FRANCISCO BLACKMON ([email or web address]) on 09/30/24 at 10:17. Electronically submitted by Joel Bravo ([email or web address]). FRANCISCO BLACKMON Sep 30, 2024 09:10
[2024-09-30 09:13] LABS: Urine Bacteria FEW /hpf (None Seen); Urine Blood TRACE /uL (Negative); Urine Budding Yeast OCCASIONAL /hpf (None Seen); Urine Clarity Clear (Clear); Urine Color Light-Yellow (Yellow); Urine Protein, UAD TRACE (Negative); Urine Specific Gravity 1.046 (1.001-1.035); Urine Squamous Epithelial Cell FEW /hpf (<5); Urine Urobilinogen Normal (Negative); Urine WBC 3 /HPF (0-5); Urine pH 5.5 (5.0-9.0)
[2024-09-30 09:24] LABS: Basophils # (auto) 0 10 ^3/uL (0-0.2); Basophils % (auto) 0.3 % (0.0-2.0); Eosinophils # (auto) 0.1 10 ^3/uL (0-0.8); Eosinophils % (auto) 0.9 % (0.0-7.0); Hematocrit 44.9 % (36.0-46.0); Hemoglobin 15.4 g/dL (12.2-16.2); Lymphocytes # (auto) 1.5 10 ^3/uL (0.4-5.4); Lymphocytes % (auto) 21.7 % (10.0-50.0); Mean Corpuscular Hemoglobin 30.8 pg (28.0-32.0); Mean Corpuscular Hgb Conc. 34.3 g/dL (32.0-36.0); Mean Corpuscular Volume 89.9 fL (80.0-100.0); Monocytes # (auto) 0.4 10 ^3/uL (0-1.3); Monocytes % (auto) 5.8 % (0.0-12.0); Neutrophils # (auto) 4.8 10 ^3/uL (1.6-8.6); Neutrophils % (auto) 71.3 % (37.0-80.0); Nucleated Red Blood Cells % 0.1 %; Platelet Count (auto) 325 10^3/uL (140-450); Red Blood Cells 4.99 10^6/uL (4.0-5.20); Red Cell Distribution Width 12.9 % (11.8-14.3); White Blood Cell 6.7 10^3/uL (4.4-10.8)
[2024-09-30 09:34] LABS: Chloride 99 mmol/L (98-107)
[2024-09-30 09:35] LABS: Anion Gap 15 (5-15); Carbon Dioxide 21 mmol/L (20-31)
[2024-09-30 09:36] LABS: Calcium 10.1 mg/dL (8.7-10.4)
[2024-09-30 09:41] LABS: BUN/Creatinine Ratio 9.1 (10.0-20.0)
[2024-09-30 09:45] LABS: Blood Urea Nitrogen 6 mg/dL (9-23); Glucose 325 mg/dL (74-106); Sodium 135 mmol/L (136-145)
--- NOTE | 2024-09-30 10:05 | DVH ---
CT ABDOMEN AND PELVIS WITHOUT CONTRAST CLINICAL HISTORY: LOWER ABD PAIN TO LOWER BACK TECHNIQUE: Multiple contiguous axial images of the abdomen and pelvis without intravenous contrast. T he images were reformatted degenerate coronal and sagittal reconstructions. All CT scans at this medical facility are performed using dose modulation techniques as appropriate t o a performed exam including the following:Automated exposure control was utilized; adjustment of the MA and/or KV according to patient size; and use of iterative reconstruction technique. Radiation Dose Information: CT Dose: CTDI volume is 8.94 mGy. Dose-length product is 469.78 mGy*cm Comparison: CT CT AB PEL WO CON-NO ORAL OR IV on DOS: 10/18/23, CT ABD PELVIS WO CONTRAST on DOS: 02/21 FINDINGS: Evaluation of the abdomen and pelvis is limited without intravenous contrast. The gallbladder is surgically absent. The liver, pancreas, kidneys, adrenal glands, and spleen esthela ear within normal limits. There is no gross evidence of abdominal lymphadenopathy. There is no free fluid or free air. The stomach grossly appears unremarkable. The small and large bowel loops demonstrate normal caliber and distribution. The appendix is not seen in the right lower quadrant abdomen. There are no seconda ry signs of acute appendicitis. The abdominal aorta and IVC appear within normal limits. The bladder appears unremarkable for the degree of distention. Pelvic organ appears within normal collado its. There is no gross evidence of a pelvic mass. There is no free fluid collection. Lung bases are clear. There is no acute osseous abnormality. IMPRESSION: 1. There is no acute process in the abdomen and pelvis. HS:Y
[2024-09-30] MEDS: KETOROLAC TROMETH 30 MG/ML 1ML VIAL IV ONE (10:48)
[2024-09-30] MEDS: SODIUM CHLORIDE 0.9% 1,000 ML IV ONE (10:56)
[2024-09-30] MEDS ORDERED: IBUP-1456 PO (12:23)
== END 2024-09-30 12:27 | disposition home or self-care (01) ==
LOC: ER 08:13
DX: R10.32 Left lower quadrant pain (principal); R10.31 Right lower quadrant pain; E11.65 Type 2 diabetes mellitus with hyperglycemia; I10 Essential (primary) hypertension; E78.5 Hyperlipidemia, unspecified; Z87.442 Personal history of urinary calculi; Z90.49 Acquired absence of other specified parts of digestive tract; Z79.899 Other long term (current) drug therapy; Z79.1 Long term (current) use of non-steroidal anti-inflammatories (NSAID)
CPT/HCPCS: 36415; 74176; 80048; 81001; 82947; 85025; 96361; 96374; 99285; J1885; J7030; 82962

== ENCOUNTER 2024-11-24 11:25 | Emergency (ER) | payer MEDICARE, MEDICAID ==
[~2024-11-24] VITALS: Ht 162.6 cm; Wt 64.4 kg
[~2024-11-24 11:25] MED LIST changes: +IBUP-1456 PO
[2024-11-24 12:33] LABS: Urine Bacteria None Seen /hpf (None Seen)
[2024-11-24 12:43] LABS: Urine Blood 3+ /uL (Negative); Urine Clarity Clear (Clear); Urine Color Colorless (Yellow); Urine Protein, UAD Negative (Negative); Urine Squamous Epithelial Cell FEW /hpf (<5); Urine Urobilinogen Normal (Negative); Urine WBC 7 /HPF (0-5); Urine pH 5.5 (5.0-9.0)
--- NOTE | 2024-11-24 13:22 | ED.PDOC ---
History of Present Illness HPI Comments 34 year old female presents to the ED for the c/c of Lower back pain that radiates down both legs. Pt states she has had her pain for the past 4x days. Pt denies any falls or recent injuries, but does note of a worsening factor of sitting. Chief Complaint: Back Pain Time Seen by MD: 13:17 Primary Care Provider: GRAHAM Centeno Notes: Nurses Notes, Medications, Allergies Allergies: Coded Allergies: NO KNOWN ALLERGIES (Unverified , 11/03/19) Home Meds Active Scripts Naproxen (Naproxen) 500 Mg Tab, 500 MG PO BIDPC for 10 Days, #20 TAB 0 Refills Prov:BELLE HAGAN ASSISTANT EDUCATION DIRECTOR 11/24/24 Ibuprofen (Ibuprofen) 800 Mg Tab, 1 TAB PO TID, #30 TAB Prov:FRANCISCO BLACKMON 09/30/24 Methocarbamol (Methocarbamol) 750 Mg Tab, 750 MG PO BID, #20 TAB Prov:FRANCSICO BLACKMON 08/20/24 Acetaminophen (Tylenol Extra Strength Fo) 500 Mg Tab, 1000 MG PO BID, #30 TAB Prov:FRANCISCO BLACKMON 08/20/24 Metronidazole (Flagyl) 500 Mg Tab, 500 MG PO Q8HR for 7 Days, #21 TAB Prov:YAHIR BAUTISTA WIDTH STRIPPER 02/25/22 Acetaminophen (Acetaminophen) 500 Mg Tab, 500 MG PO QID, #30 TAB 0 Refills Prov:APARNA JAMES 12/25/21 Carbamide Peroxide (Debrox) 6.5 % Elisabeth, 5 DROP OT BID for 4 Days, #1 BOTTLE 0 Refills Prov:APARNA JAMES 12/25/21 Amoxicillin & Pot Clavulanate (Amoxicillin/Potassium Cla) 875 Mg Tab, 1 TAB PO BID for 7 Days, #14 TAB 0 Refills Prov:APARNA JAMES 12/25/21 Nitrofurantoin Monohydrate Mac (Macrobid) 100 Mg Cap, 100 MG PO BID for 5 Days, #10 CAP Prov:TALYA UNGER MD 12/03/21 Ondansetron (Zofran) 4 Mg Tab, 1 TAB PO Q6HR, #20 TAB Prov:TALYA UNGER MD 12/03/21 Tramadol Hcl (Ultram) 50 Mg Tab, 1 TAB PO Q6HR, #30 TAB Prov:TALYA UNGER MD 12/03/21 Insulin Glargine (Lantus) 100 Unit/Ml Inj, 35 UNIT SC QPM, #30 INJ Prov:DELMI DELACRUZ MD 04/05/20 Gemfibrozil (Gemfibrozil) 600 Mg Tab, 1 TAB PO BID, #60 TAB 0 Refills Prov:DELMI DELACRUZ MD 04/05/20 Reported Medications Dorzolamide HCl (Dorzolamide Hydrochloride) 2 % Elisabeth 10/20/23 Ergocalciferol (Vitamin D) 50,000 Unit Cap, 1 CAP PO QWEEKLY 10/20/23 Pantoprazole Sodium Sesquihydr (Pantoprazole Sodium) 40 Mg Tab, 1 TAB PO BID 10/20/23 Atorvastatin Calcium (Lipitor) 40 Mg Tab, 1 TAB PO QPM, #90 TAB 1 Refill 04/21/21 Cyanocobalamin (Vitamin B12) Unknown Strength Tab, PO DAILY, TAB 04/03/20 Cholecalciferol (Vitamin D3) 1,000 Unit Tab, 1000 UNIT PO DAILY, TAB 04/03/20 Losartan Potassium (Losartan Potassium) 50 Mg Tab, 50 MG PO DAILY for 30 Days, MG 04/03/20 Hydrocodone-Acetaminophen (Eugene 5/325MG) 1 Tab Tb, 1 TAB PO PRN, #90 TAB 04/03/20 Latanoprost (LATANOPROST) 0.005 % Elisabeth, 1 DROP EACHEYE QPM, #7.5 ML 3 Refills 04/03/20 Insulin Regular (Human) (Humulin R) 100 Unit/Ml Inj, 12 UNIT SC TIDWM, INJ 11/04/19 Metformin Hydrochloride (Metformin Hcl) 500 Mg Tab, 1000 MG PO IBID for 30 Days, MG 11/04/19 Information Source: Patient Mode of Arrival: Ambulatory Severity: Mild Timing: Days Duration: Since onset, Days Prehospital treatment: None Past Medical History PAST MEDICAL HISTORY: DM, High Lipids, HTN, Kidney Stones Surgical History: Cholecystectomy SHEET METAL HELPER History: No Pertinent SHEET METAL HELPER History Family History Family History: Reviewed,noncontributory to illness, Family hx of DM Social History Smoker: Non-Smoker Alcohol: Denies ETOH Use Drugs: Denies Drug Use Lives In: Home Constitutional: denies: chills, diaphoresis, fatigue, fever, malaise, sweats, weakness, others EENTM: denies: blurred vision, double vision, ear bleeding, ear discharge, ear drainage, ear pain, ear ringing, eye pain, eye redness, hearing loss, mouth pain, mouth swelling, nasal discharge, nose bleeding, nose congestion, nose pain, photophobia, tearing, throat pain, throat swelling, voice changes, others Respiratory: denies: cough, hemoptysis, orthopnea, SOB at rest, shortness of breath, SOB with excertion, stridor, wheezing, others Cardiovascular: denies: chest pain, dizzy spells, diaphoresis, Dyspnea on exertion, edema, irregular heart beat, left arm pain, lightheadedness, palpitations, PND, syncope, others Gastrointestinal: denies: abdomen distended, abdominal pain, blood streaked bowels, constipated, diarrhea, dysphagia, difficulty swallowing, hematemesis, melena, nausea, poor appetite, poor fluid intake, rectal bleeding, rectal pain, vomiting, others Genitourinary: denies: abnormal vagina bleeding, burning, dyspareunia, dysuria, flank pain, frequency, hematuria, incontinence, pain, , vagina discharge, urgency, others Neurological: denies: dizziness, fainting, headache, left sided numbness, left sided weakness, numbness, paresthesia, pre-existing deficit, right sided numbne ss, right sided weakness, seizure, speech problems, tingling, tremors, weakness, others Musculoskeletal: reports: back pain; denies: gout, joint pain, joint swelling, muscle pain, muscle stiffness, neck pain, others Integumetry: denies: bruises, change in color, change in hair/nails, dryness, laceration, lesions, lumps, rash, wounds, others Allergic/Immunocompromised: denies: Difficulty Healing, Frequent Infections, Hives, Itching, others Hematologic/Lymphatic: denies: anemia, blood clots, easy bleeding, easy bruising, swollen glands, others Endocrine: denies: excessive hunger, excessive sweating, excessive thirst, excessive urination, flushing, intolerance to cold, intolerance to heat, unexplained weight gain, unexplained weight loss, others Psychiatric: denies: anxiety, bipolar disorder, depression, hopeless, panic disorder, schizophrenia, sleepless, suicidal, others All Other Systems: Reviewed and Negative Physical Exam General Appearance: No Apparent Distress, Normal HEENT: Normal ENT Inspection, Pharynx Normal, TMs Normal Neck: Full Range of Motion, Non-Tender, Normal, Normal Inspection Respiratory: Chest Non-Tender, Lungs Clear, No Accessory Muscle Use, No Respiratory Distress, Normal Breath Sounds Cardiovascular: No Edema, No JVD, No Murmur, No Gallop, Normal Peripheral Pulses, Regular Rate/Rhythm Breast Exam: Deferred Gastrointestinal: No Organomegaly, Non Tender, No Pulsatile Mass, Normal Bowel Sounds, Soft Genitalia: Deferred Pelvic: Deferred Rectal: Deferred Extremities: No calf tenderness, Normal capillary refill, Normal inspection, Normal range of motion, Non-tender, No pedal edema Musculoskeletal : Location: Bilateral Extremity Location: Back (No Midline tenderness, No TTP, no gross abnormaility ) Apperance: Normal Neurologic: Alert, positive printer operator II-XII nml as Tested, No Motor Deficits, Normal Affect, Normal Mood, No Sensory Deficits Cerebellar Function: Normal Reflexes: Normal Skin: Dry, Normal Color, Warm Lymphatic: No Adenopathy Was a procedure done? Was a procedure done?: No X-Ray, Labs, Meds, VS Vital Signs Date Time Temp Pulse Resp B/P (MAP) Pulse Ox O2 Delivery O2 Flow Rate FiO2 11/24/24 13:46 97.9 108 17 132/79 (96) 97 97.9 11/24/24 13:46 108 18 97 Room Air 11/24/24 11:45 97.9 108 17 132/79 (96) 97 97.9 Lab Test 11/24/24 11:45 Range/Units Urine Color Colorless Yellow Urine Clarity Clear Clear Urine pH 5.5 5.0-9.0 Urine Specific Barnard 1.050 H 1.001-1.035 Urine Protein Negative Negative Urine Ketones 4+ H Negative Urine Blood 3+ H Negative /uL Urine Nitrite Negative Negative Urine Bilirubin Negative Negative Urine Urobilinogen Normal Negative mg/dL Urine Leukocyte Esterase Negative Negative /uL Urine RBC 30 0 - 4 /hpf Urine Microscopic WBC 7 H 0-5 /HPF Urine Squamous Epithelial Cells Few <5 /hpf Urine Bacteria None seen None Seen /hpf Urine Glucose 4+ H Normal mg/dL Current Medications Medications (Trade) Dose Ordered Sig/Coty Route Start Time Stop Time Status Last Admin Ketorolac Tromethamine (Toradol Injection) 60 mg ONCE ONCE IM 11/24/24 13:30 11/24/24 13:31 DC 11/24/24 13:38 Methylprednisolone Sodium Succinate (Solu Medrol) 125 mg ONCE ONCE IM 11/24/24 13:30 11/24/24 13:31 DC 11/24/24 13:37 X-Ray, Labs, Meds, VS Comment 34 year old female presents to the ED for the c/c of Lower back pain that radiates down both legs. Additional MDM Review of External, Non-ED records: External records reviewed. Discussion with independent historian (EMS, family) history obtained from the patient/parents (if applicable) at bedside Chronic conditions affecting care: None Social determinants of health affecting care: None Consideration of admission (observation or admission): I considered escalation of care to admission for this patient, however given the reassuring workup, the patient is safe for outpatient management. Discussion with the Radiology: No Tests considered but not performed: Prescription medication considered but not given: Time of 1ST Reevaluation: 13:47 Reevaluation 1ST: Unchanged Patient Education/Counseling: Diagnosis, Treatment Family Education/Counseling: No Family Present SEPSIS Sepsis Screen Date sepsis recognized/suspect: Nov 24, 2024 Time Sepsis recognized/suspect: 1147 Recent Procedure: No On Antibiotic Therapy: No Respiratory Rate >20: No Heart Rate >90: Yes Temp<36 C (96.8 F) or >38.3 C: No SBP <90 or MAP <65 mmHG: No New Acute Mental Status Change: No Is the patient on CPAP, BIPAP,: No Vital Signs Date Time Temp Pulse Resp B/P (MAP) Pulse Ox O2 Delivery O2 Flow Rate FiO2 11/24/24 13:46 97.9 108 17 132/79 (96) 97 97.9 11/24/24 13:46 108 18 97 Room Air 11/24/24 11:45 97.9 108 17 132/79 (96) 97 97.9 Medications Medications Dose Ordered Sig/Coty Route Start Time Stop Time Status Last Admin Dose Admin Ketorolac Tromethamine 60 mg ONCE ONCE IM 11/24/24 13:30 11/24/24 13:31 DC 11/24/24 13:38 Methylprednisolone Sodium Succinate 125 mg ONCE ONCE IM 11/24/24 13:30 6/18/25 13:31 DC 11/24/24 13:37 Departure 1 Departure Time of Disposition: 13:25 Impression: Primary Impression: Lumbar radiculopathy Disposition: HOME / SELF CARE / HOMELESS Condition: Stable Additional Instructions: Discharge Note: Drink plenty of fluids. Follow up with your primary Dr. Take your prescriptions as ordered. If your condition becomes worse call and follow up with your primary Dr. for instructions or return to the ER if needed. Thank you for visiting [facility]. e-Prescriptions Naproxen (Naproxen) 500 Mg Tab 500 MG PO BIDPC for 10 Days, #20 TAB 0 Refills Prov: BELLE HAGAN NP 11/24/24 Discharged With: Self Critical Care Note Critical Care Time?: No Stability Stability form required: No Heart Score Heart Score: Heart Score Response (Comments) Value History N/A 0 EKG N/A 0 Age N/A 0 Risk Factors N/A 0 Troponin N/A 0 Total 0 I personally scribed for BELLE HAGAN NP ([email or web address]) on 11/24/24 at 13:22. Electronically submitted by Bradford Haney ([email or web address]). BELLE HAGAN NP Nov 24, 2024 13:22
[2024-11-24] MEDS ORDERED: NAPR-746 PO (13:26)
[2024-11-24] MEDS: methylPREDNISolone SOD SUCC 125 MG/2 ML VL IM ONE (13:37)
[2024-11-24] MEDS: KETOROLAC TROMETH 60MG/2ML VIAL IM ONE (13:38)
[2024-11-24 13:46] VITALS: BP 132/79; PULSE 108; RESP 18; TEMP 97.9; O2SAT 97
== END 2024-11-24 13:49 | disposition home or self-care (01) ==
LOC: ER 11:25
DX: M54.16 Radiculopathy, lumbar region (principal); E11.9 Type 2 diabetes mellitus without complications; I10 Essential (primary) hypertension; E78.5 Hyperlipidemia, unspecified; Z87.442 Personal history of urinary calculi; Z90.49 Acquired absence of other specified parts of digestive tract; Z79.1 Long term (current) use of non-steroidal anti-inflammatories (NSAID); Z79.899 Other long term (current) drug therapy
CPT/HCPCS: 81001; 96372; 99284; J1885; J2919